=== PATIENT | male | born 1950 | race African-American/Black ===

== ENCOUNTER 2016-12-29 14:00 | Emergency (ER) | payer OTHER ==
--- NOTE | 2016-12-29 14:06 | PDOC ---
Attending Attestation - Resident Resident Name: Renaldo Hughes - ED Attending Attestation I have performed the following: I have examined & evaluated the patient, The case was reviewed & discussed with the resident, I agree w/resident's findings & plan, Exceptions are as noted - HPI HPI: 12/29/16 14:32 The patient is a 66 year old male who presents with a painless red eye that he noted upon awakening yesterday morning. He denies any changes in his vision. He denies eye trauma. He denies fever. He denies eye discharge. 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 I answered all of the patient's questions. The patient was satisfied with the care received and felt comfortable with the discharge plan and treatment plan. The patient will call their primary care physician within 24 hours to arrange follow-up and will return to the Emergency Department with any new, persistent or worsening symptoms. Discharge Disposition - Diagnosis Conjunctivitis - Discharge Dispostion Disposition: HOME Condition at time of disposition: Stable Last Admission D/C Date: 04/17/06 - Referrals Referrals: Karmen Toribio MD [Primary Care Provider] - - Patient Instructions Printed Discharge Instructions: DI for Conjunctivitis Additional Instructions: It is very important that you follow-up with your eye doctor next week. Use the medication erythromycin eye ointment as prescribed. Return to the emergency department immediately with ANY new, persistent or worsening symptoms. You MUST call and follow up with your doctor tomorrow. Please make sure your doctor reviews the results of your emergency department evaluation.
--- NOTE | 2016-12-29 14:15 | PDOC ---
History of Present Illness - General History Source: Patient Exam Limitations: No Limitations - History of Present Illness Initial Comments: 12/29/16 15:26 The patient is a 66 year old male, with a significant past medical history of left cataract surgery, who presents to the emergency department with a painless left red eye that he noticed yesterday morning upon awakening. The patient notes that he has baseline decreased vision in his left eye and baseline watery eyes. His left pupil is elliptical and non-reactive to light, which he identifies as a chronic condition. His friend who is present in the exam room confirms this. He notes that he does not have any pain with movement of the eyeball. He denies any trauma to the eye, visual changes, double vision. He denies any crusting to the eyes, blood coming from the eye, or any discharge. He notes that he has not tried any over the counter drops to alleviate the redness in his left eye. He denies chest pain, abdominal pain, headache, lightheadedness and dizziness. He denies cough, sinus pressure, fever, chills, and headache. He denies any sick contacts or recent travel Allergies: None Past surgical history:Left cataract surgery Social history: Current everyday smoker (20 cigarettes per day for 40+ years) and Heroin use PCP: Dr. Corinne Toribio <Vita Reid - Last Filed: 12/29/16 15:26> <Renaldo Hughes - Last Filed: 12/29/16 15:37> - General Chief Complaint: Eye Problem Stated Complaint: LEFT EYE REDNESS Time Seen by Provider: 12/29/16 14:06 Past History <Vita Reid - Last Filed: 12/29/16 15:26> <Renaldo Hughes - Last Filed: 12/29/16 15:37> - Past Medical History Allergies/Adverse Reactions: Allergies Allergy/AdvReac Type Severity Reaction Status Date / Time No Known Allergies Allergy Verified 12/29/16 14:06 Home Medications: Ambulatory Orders Coumadin HS 12/29/16 Erythromycin 0.5% Eye Ointment [Erythromycin 0.5% Eye Ointment -] 1 applic OS 5XD #1 tube 12/29/16 Lasix 12/29/16 Methadone [Dolophine -] 40 mg PO DAILY 12/29/16 Tamsulosin HCl [Flomax] 0.4 mg PO HS 12/29/16 Review of Systems - Review of Systems Able to Perform ROS?: Yes Comments:: 12/29/16 15:29 CONSTITUTIONAL: Absent: fever, no chills, no fatigue EYES: +left eye redness Absent: visual changes ENT: Absent: ear pain, no sore throat CARDIOVASCULAR: Absent: chest pain, no palpitations RESPIRATORY: Absent: cough, no SOB GI: Absent: abdominal pain, no nausea, no vomiting, no constipation, no diarrhea GENITOURINARY: Absent: dysuria, no frequency, no hematuria MUSCULOSKELETAL: Absent: back pain, no arthralgia, no myalgia SKIN: Absent: rash <Vita Reid - Last Filed: 12/29/16 15:26> *Physical Exam - Vital Signs Last Vital Signs Temp Pulse Resp BP Pulse Ox 98.0 F 90 20 128/90 95 12/29/16 14:03 12/29/16 14:03 12/29/16 14:03 12/29/16 14:03 12/29/16 14:03 - Physical Exam Comments: 12/29/16 15:29 GENERAL: Well-appearing, well-nourished. No apparent distress. HEENT: + Left pupil is elliptical and non-reactive to light (He identifies this as chronic and his friend who is present in the exam room confirms). +Left conjunctiva is injected and beefy. No increased lacrimation, no crusting. Right pupil is PERRL. Normocephalic CARDIOVASCULAR: +Irregularly irregular tachycardia PULMONARY: Clear to auscultation bilaterally. ABDOMEN: Soft, non-distended, non-tender. Normal bowel sounds. EXTREMITIES: + 2+ pitting edema on bilateral lower extremities Normal ROM in all four extremities. No gross deformities. SKIN: Warm, dry. No rash NEUROLOGICAL: No focal neurological deficits. <Vita Reid - Last Filed: 12/29/16 15:26> Medical Decision Making - Medical Decision Making 12/29/16 14:25 According to friend at bedside, pt's L iris has always been elliptical in shape. Pt to be discharged with erythromycin ointment to be used in eye. Pt also to f/ u with employee health rn and primary care provider. Pt most likely to have viral conjunctivitis causing redness in eye and protrusion of eye likely due to edema in eye. <Renaldo Hughes - Last Filed: 12/29/16 15:37> *DC/Admit/Observation/Transfer - Attestations Scribe Attestion: 12/29/16 15:30 Documentation prepared by LANDON Shaw, acting as forensic medical examiner for Ok Benavidez MD. <Vita Reid - Last Filed: 12/29/16 15:26> <Renaldo Hughes - Last Filed: 12/29/16 15:37> Diagnosis at time of Disposition: Conjunctivitis - Discharge Dispostion Disposition: HOME Condition at time of disposition: Stable - Prescriptions Prescriptions: Erythromycin 0.5% Eye Ointment [Erythromycin 0.5% Eye Ointment -] 1 applic OS 5XD #1 tube - Referrals Referrals: Karmen Toribio MD [Primary Care Provider] - - Patient Instructions Printed Discharge Instructions: DI for Conjunctivitis Additional Instructions: It is very important that you follow-up with your eye doctor next week. Use the medication erythromycin eye ointment as prescribed. Return to the emergency department immediately with ANY new, persistent or worsening symptoms. You MUST call and follow up with your doctor tomorrow. Please make sure your doctor reviews the results of your emergency department evaluation.
[2016-12-29 14:34] VITALS: BP 128/90; PULSE 90; TEMP 98; BMI 37.6
== END 2016-12-29 14:50 | disposition home or self-care (01) ==
LOC: FER 14:00
DX: H10.9 Unspecified conjunctivitis (principal); F17.210 Nicotine dependence, cigarettes, uncomplicated; F11.90 Opioid use, unspecified, uncomplicated; Z79.01 Long term (current) use of anticoagulants
CPT/HCPCS: 99281-25

== ENCOUNTER 2017-11-09 18:52 | Inpatient (IN) | payer OTHER ==
--- NOTE | 2017-11-09 19:08 | PDOC ---
History of Present Illness - General Chief Complaint: Shortness of Breath Stated Complaint: SOB - History of Present Illness Initial Comments: 11/10/17 12:23 Patient appears clinically stable. Labwork, EKG, and x-rays are ordered. Signed out to Dr. Joseph 7 PM for further examination and evaluation Past History - Past Medical History Allergies/Adverse Reactions: Allergies Allergy/AdvReac Type Severity Reaction Status Date / Time No Known Allergies Allergy Verified 11/09/17 18:53 Home Medications: Ambulatory Orders Methadone [Dolophine -] 60 mg PO DAILY 12/29/16 Tamsulosin HCl [Flomax] 0.4 mg PO HS 12/29/16 Furosemide [Lasix] 100 mg PO BID 11/09/17 Warfarin Sodium [Coumadin] mg PO DAILY 11/09/17 Cardiac Disorders: Yes (A-FIB) COPD: No Disorders: Yes (BPH) Liver Disease: Yes (HEPATITIS) Psychiatric Problems: Yes (HEROIN ADDICTION) - Surgical History Abdominal Surgery: Yes (HERNIA REPAIR) - Suicide/Smoking/Psychosocial Hx Smoking History: Current every day smoker Have you smoked in the past 12 months: Yes Number of Cigarettes Smoked Daily: 4 Information on smoking cessation initiated: Yes 'Breaking Loose' booklet given: 11/09/17 Hx Alcohol Use: No Drug/Substance Use Hx: Yes (HEROIN DAILY) Substance Use Type: Heroin *Physical Exam - Vital Signs Last Vital Signs Temp Pulse Resp BP Pulse Ox 98.2 F 97 H 24 138/96 90 L 11/09/17 18:52 11/09/17 18:52 11/09/17 18:52 11/09/17 18:52 11/09/17 18:52 ED Treatment Course - LABORATORY CBC & Chemistry Diagram: 11/09/17 22:20 11/09/17 22:20 *DC/Admit/Observation/Transfer Diagnosis at time of Disposition: COPD exacerbation - Discharge Dispostion Condition at time of disposition: Stable - Referrals - Patient Instructions - Post Discharge Activity
[2017-11-09] MEDS ORDERED: ALBUTEROL SO4 2.5/IPRATROPIUM 0.5 INH SOL 3 ML VIAL.NEB. NEB ONE ×5 (19:31→21:33)
--- NOTE | 2017-11-09 19:33 | PDOC ---
History of Present Illness - History of Present Illness Initial Comments: 11/09/17 19:33 The patient is a 66 year old male, with a significant past medical history of CHF (100mg BID Lasix) and left cataract surgery, who presents to the emergency department from a nearby Urgent Care for evaluations of two weeks with shortness of breath and increased lower extremity swelling. He states the dyspnea is worse with lying flat. He denies use of at home O2. The patient states he walks with 2 canes and becomes winded with only a few steps which is his baseline. He states he had a CXR at the urgent care which was negative, however, patient was advised to come to ED. He denies chest pain, palpitations, headache and dizziness. He denies fever, chills, nausea, vomit, diarrhea and constipation. He denies dysuria, frequency, urgency and hematuria. Allergies: None Past surgical history: Left cataract surgery Social history: Current everyday smoker (20 cigarettes per day for 40+ years) and Heroin use PCP: Dr. Corinne Watts ([place]) <Nguyen Fatima - Last Filed: 11/09/17 19:51> - General History Source: Patient Exam Limitations: No Limitations <Susu Prakash - Last Filed: 11/10/17 00:47> - General Chief Complaint: Shortness of Breath Stated Complaint: SOB Time Seen by Provider: 11/09/17 19:25 Past History <Nguyen Fatima - Last Filed: 11/09/17 19:51> - Past Medical History Cardiac Disorders: Yes (A-FIB) COPD: No Disorders: Yes (BPH) Liver Disease: Yes (HEPATITIS) Psychiatric Problems: Yes (HEROIN ADDICTION) - Surgical History Abdominal Surgery: Yes (HERNIA REPAIR) - Suicide/Smoking/Psychosocial Hx Smoking History: Current every day smoker Have you smoked in the past 12 months: Yes Number of Cigarettes Smoked Daily: 4 Information on smoking cessation initiated: Yes 'Breaking Loose' booklet given: 11/09/17 Hx Alcohol Use: No Drug/Substance Use Hx: Yes (HEROIN DAILY) Substance Use Type: Heroin <Susu Prakash - Last Filed: 11/10/17 00:47> - Past Medical History Allergies/Adverse Reactions: Allergies Allergy/AdvReac Type Severity Reaction Status Date / Time No Known Allergies Allergy Verified 11/09/17 18:53 Home Medications: Ambulatory Orders Methadone [Dolophine -] 60 mg PO DAILY 12/29/16 Tamsulosin HCl [Flomax] 0.4 mg PO HS 12/29/16 Furosemide [Lasix] 100 mg PO BID 11/09/17 Warfarin Sodium [Coumadin] mg PO DAILY 11/09/17 Review of Systems - Review of Systems Able to Perform ROS?: Yes Comments:: 11/09/17 19:33 GENERAL/CONSTITUTIONAL: No fever or chills. No weakness. HEAD, EYES, EARS, NOSE AND THROAT: No change in vision. No ear pain or discharge. No sore throat. CARDIOVASCULAR: No chest pain or shortness of breath. RESPIRATORY: (+) shortness of breath. orthopnea. No cough, wheezing, or hemoptysis. GASTROINTESTINAL: No nausea, vomiting, diarrhea or constipation. GENITOURINARY: No dysuria, frequency, or change in urination. MUSCULOSKELETAL: (+) bilateral lower extremity swelling. No joint or muscle pain. No neck or back pain. SKIN: No rash NEUROLOGIC: No headache, vertigo, loss of consciousness, or change in strength/ sensation. ENDOCRINE: No increased thirst. No abnormal weight change. HEMATOLOGIC/LYMPHATIC: No anemia, easy bleeding, or history of blood clots. ALLERGIC/IMMUNOLOGIC: No hives or skin allergy. <Nguyen Fatima - Last Filed: 11/09/17 19:51> *Physical Exam - Vital Signs Last Vital Signs Temp Pulse Resp BP Pulse Ox 98.2 F 97 H 24 138/96 90 L 11/09/17 18:52 11/09/17 18:52 11/09/17 18:52 11/09/17 18:52 11/09/17 18:52 - Physical Exam Comments: 11/09/17 19:33 GENERAL: Awake but drowsy, alert, and oriented, in no acute distress HEAD: No signs of trauma EYES: PERRLA, EOMI, sclera anicteric, conjunctiva clear ENT: Auricles normal inspection, hearing grossly normal, nares patent, oropharynx clear without exudates. Moist mucosa NECK: Normal ROM, supple, no lymphadenopathy, JVD, or masses LUNGS: (+)crackles and end expiratory wheezes at bilateral bases Breath sounds equal. Good effort. HEART: Regular rate and rhythm, normal S1 and S2, no murmurs, rubs or gallops ABDOMEN: Obese, Soft, nontender, normoactive bowel sounds. No guarding, no rebound. No masses EXTREMITIES: (+) Brawny Edema to bilateral lower extremities. Right inner calf there is a wound draining yellow serous fluid. No erythema or increased warmth. Normal range of motion, No clubbing or cyanosis. No cords, erythema, or tenderness NEUROLOGICAL: Cranial nerves II through XII grossly intact. Normal speech, SKIN: Warm, Dry, normal turgor, no rashes or lesions noted. <Ngueyn Fatima - Last Filed: 11/09/17 19:51> - Vital Signs Last Vital Signs Temp Pulse Resp BP Pulse Ox 98.2 F 97 H 24 138/96 90 L 11/09/17 18:52 11/09/17 18:52 11/09/17 18:52 11/09/17 18:52 11/09/17 18:52 <Susu Prakash - Last Filed: 11/10/17 00:47> Heart Score/ECG Review #1 General ECG Interpretation: Normal Rate (100 tachy), Normal Intervals, No acute ischemic changes Compared to previous ECG there are: Other (afib) <Susu Prakash - Last Filed: 11/10/17 00:47> ED Treatment Course - LABORATORY CBC & Chemistry Diagram: 11/09/17 22:20 11/09/17 22:20 <Susu Prakash - Last Filed: 11/10/17 00:47> Medical Decision Making - Medical Decision Making 11/09/17 19:29 67 yo M with h/o copd( PPD x 40 yrs) , CHF, here with sob, worse wtih xertion and lying flat, here from urgent care from hypoxia. no cp no f/c cough yellow phlegm on exam bibasilar crackles and expiratory wheezes. cxr veiwed from urgent care with chronic changes, no infiltrate, no obvious edema or congestion. differential: copd exacerbation liklye, mild chf. plan labs nebs, steroids, likley admit for copd exacerbation,. pcp dr. chen watts. <Susu Prakash - Last Filed: 11/10/17 00:47> *DC/Admit/Observation/Transfer - Attestations Scribe Attestion: 11/09/17 19:34 Documentation prepared by Nguyen Fatima, acting as medical insurance collector for Susu Prakash MD, <Nguyen Fatima - Last Filed: 11/09/17 19:51> - Discharge Dispostion Admit: Yes <Susu Prakash - Last Filed: 11/10/17 00:47> Diagnosis at time of Disposition: COPD exacerbation - Discharge Dispostion Condition at time of disposition: Stable
[2017-11-09] MEDS ORDERED: predniSONE 20 MG TABLET (UD) PO ONE (21:19)
[2017-11-09] MEDS ORDERED: predniSONE 20 MG TABLET (UD) ONE (21:34)
[2017-11-09] MEDS ORDERED: LIDOCAINE HCL 1%, 10 MG/ML (50 mL VIAL) SQ ONE (21:55)
[2017-11-09] MEDS ORDERED: LIDOCAINE HCL 1%, 10 MG/ML (20ML VIAL) ONE (21:56)
[2017-11-09 22:01] LABS: URINE APPEARANCE Clear; URINE BILIRUBIN Negative (NEGATIVE); URINE GLUCOSE (UA) Negative (NEGATIVE); URINE KETONE Negative (NEGATIVE); URINE LEUK ESTERASE Negative (NEGATIVE); URINE NITRITE Negative (NEGATIVE)
[2017-11-09 22:02] LABS: URINE BLOOD Trace-intact (NEGATIVE); URINE COLOR YELLOW; URINE PROTEIN 1+ (NEGATIVE)
[2017-11-09 22:09] LABS: URINE BACTERIA FEW /hpf (NEGATIVE); URINE WBC 0-2 (0-2)
[2017-11-09] MEDS ORDERED: FUROSEMIDE 40 MG TABLET (FP) PO ONE (22:30)
[2017-11-09 22:52] LABS: BASO % 1.1 % (0-2.0); EOS % 1.5 % (0-4.5); HEMATOCRIT 40.7 % (35.4-49); HEMOGLOBIN 13.3 GM/dl (11.7-16.9); LYMPH % 33.3 % (8-40); MCH 29.1 pg (25.7-33.7); MCHC 32.8 g/dl (32.0-35.9); MEAN CELL VOLUME 88.7 fl (80-96); MEAN PLT VOLUME 8.7 fl (7.5-11.1); MONO % 15.1 % (3.8-10.2); PLATELET COUNT 156 K/MM3 (134-434); RBC 4.59 M/mm3 (4.00-5.60); RDW 13.2 % (11.9-15.9); WHITE BLOOD COUNT 3.8 K/mm3 (4.0-10.8)
[2017-11-09] MEDS ORDERED: FUROSEMIDE 40 MG TABLET (FP) ONE (22:58)
[2017-11-09 23:04] LABS: INR 1.38 (0.82-1.09); PROTHROMBIN TIME (PATIENT) 15.4 SEC (10.2-13.0)
[2017-11-09 23:17] LABS: ALBUMIN 3.5 g/dl (3.5-5.0); ALK PHOS 85 U/L (32-92); ANION GAP 1 (8-16); BILIRUBIN,TOTAL 0.5 mg/dl (0.2-1.0); BLOOD UREA NITROGEN 14 mg/dl (7-18); CALCIUM 8.8 mg/dl (8.4-10.2); CHLORIDE 98 mmol/L (98-107); CO2 39 mmol/L (22-28); CREATININE 0.8 mg/dl (0.6-1.3); GLUCOSE,RANDOM 99 mg/dl (74-106); POTASSIUM 3.9 mmol/L (3.5-5.1); SGOT/AST 29 U/L (10-42); SGPT/ALT 17 U/L (10-40); SODIUM 138 mmol/L (136-145); TOT PROT 7.3 g/dl (6.4-8.3)
[2017-11-09 23:49] LABS: VENOUS PH 7.25 (7.32-7.42); VENOUS PO2 39.9 mmHg (28-48)
[2017-11-09 23:53] LABS: VENOUS PC02 85.4 mmHg (38-52)
[2017-11-10] MEDS ORDERED: methylPREDNISolone NA SUCC 40 MG/1 ML VIAL ONE (02:07)
[2017-11-10] MEDS: methylPREDNISolone NA SUCC 40 MG/1 ML VIAL IVPUSH SCH ×3 (02:11→18:09)
[2017-11-10 05:09] VITALS: BMI 39.1
[2017-11-10 05:52] LABS: ARTERIAL BLD GAS O2 SATURATION 99.4 % (90-98.9); ARTERIAL BLOOD GAS BASE EXCESS 6.5 meq/l (-2-2); ARTERIAL BLOOD GAS pH 7.26 (7.35-7.45)
[2017-11-10 05:54] LABS: ALLENS TEST POSITIVE
[2017-11-10 05:58] LABS: COCAINE, UR NEGATIVE ng/ml (CUTOFF=300); PHENCYCLIDINE,URINE NEGATIVE ng/ml (CUTOFF=25); URINE AMPHETAMINES NEGATIVE ng/ml (CUTOFF=500); URINE BARBITURATES NEGATIVE ng/ml (CUTOFF=200); URINE BENZODIAZEPINES NEGATIVE ng/ml (CUTOFF=200)
[2017-11-10] MEDS ORDERED: FUROSEMIDE 40 MG TABLET (FP) PO SCH (06:00)
[2017-11-10 06:02] LABS: ARTERIAL BLOOD GAS PCO2 86.2 mmHg (35-45)
[2017-11-10 06:03] LABS: METHADONE, UR POSITIVE ng/ml (CUTOFF=300); OPIATES, URI POSITIVE ng/ml (CUTOFF=300)
[2017-11-10] MEDS: ALBUTEROL SO4 2.5/IPRATROPIUM 0.5 INH SOL 3 ML VIAL.NEB. NEB SCH ×4 (08:05→20:05)
[2017-11-10] MEDS: TAMSULOSIN HCL 0.4 MG CAP.ER.24H (FP) PO SCH (08:30)
[2017-11-10] MEDS: ENOXAPARIN NA (PORCINE) 40 MG/0.4 ML DISP.SYRIN SQ SCH (10:20)
--- NOTE | 2017-11-10 13:26 | HP ---
Admitting History and Physical - Admission Chief Complaint: shortness of breath History of Present Illness: HPI This is a 67 year old male with pmhx A fib, 40 years drug abuse currently on methadone, active smoker, CHF, left cataract surgery, L hip surgery, presented to the ED with 3 days worsening shortness of breath. The patient states for the past 10 days hes thought to have walking pneumonia with sputum production after taking robatussin. When he would change position his chest would hurt and he would feel difficulty breathing. Per ED record pt was seen in urgent care for evaluation for sob and le swelling, cxr was negative however they told him to go to a ER. He ambulates 2 canes and was dyspneic on exertion. He denies chest pain, n/v, fever, chills. PCP: Dr. Corinne Toribio ([place]) History Source: Patient Limitations to Obtaining History: No Limitations - Past Medical History Cardiovascular: Yes: AFIB, CHF - Past Surgical History Past Surgical History: Yes: Cataract Removal - Smoking History Smoking history: Current every day smoker Have you smoked in the past 12 months: Yes Aproximately how many cigarettes per day: 4 - Alcohol/Substance Use Hx Alcohol Use: No History of Substance Use: reports: Heroin - Social History Usual Living Arrangement: Yes: Alone ADL: Independent History of Recent Travel: No Home Medications - Allergies Allergies/Adverse Reactions: Allergies Allergy/AdvReac Type Severity Reaction Status Date / Time No Known Allergies Allergy Verified 11/09/17 18:53 - Home Medications Home Medications: Ambulatory Orders Methadone [Dolophine -] 60 mg PO DAILY 12/29/16 Tamsulosin HCl [Flomax] 0.4 mg PO HS 12/29/16 Furosemide [Lasix] 100 mg PO BID 11/09/17 Warfarin Sodium [Coumadin] mg PO DAILY 11/09/17 Review of Systems - Review of Systems Constitutional: reports: No Symptoms Eyes: reports: No Symptoms HENT: reports: No Symptoms Neck: reports: No Symptoms Cardiovascular: reports: Shortness of Breath Respiratory: reports: SOB, SOB on Exertion Gastrointestinal: reports: No Symptoms Genitourinary: reports: No Symptoms Breasts: reports: No Symptoms Reported Musculoskeletal: reports: No Symptoms Integumentary: reports: No Symptoms Neurological: reports: No Symptoms Endocrine: reports: No Symptoms Hematology/Lymphatic: reports: No Symptoms Psychiatric: reports: No Symptoms Physical Examination Vital Signs: Vital Signs Temperature 98.6 F 11/10/17 06:39 Pulse Rate 105 H 11/10/17 11:18 Respiratory Rate 19 11/10/17 11:18 Blood Pressure 121/71 11/10/17 11:18 O2 Sat by Pulse Oximetry (%) 100 11/10/17 11:18 Constitutional: Yes: Calm Eyes: Yes: PERRL HENT: Yes: Atraumatic Neck: Yes: Supple Cardiovascular: Yes: Regular Rate and Rhythm, S1, S2 Respiratory: Yes: Diminished, On BiPap, Rhonchi Gastrointestinal: Yes: Normal Bowel Sounds, Soft, Abdomen, Obese Extremities: Yes: WNL Edema: Yes Edema: LLE: 2+ (thighs), RLE: 2+ (thighs ) Peripheral Pulses WNL: Yes Integumentary: Yes: Venous Stasis Changes Neurological: Yes: Alert, Oriented, Cran Nerves II-XII Intact Labs: CBC, BMP 11/09/17 22:20 11/09/17 22:20 Imaging - Results Chest X-ray: Report Reviewed (cxr from urgent care with chronic changes, no infiltrate, no obvious edema or congestion) Problem List - Problems (1) Methadone dependence Code(s): F11.20 - OPIOID DEPENDENCE, UNCOMPLICATED (2) CHF (congestive heart failure) Code(s): I50.9 - HEART FAILURE, UNSPECIFIED (3) COPD exacerbation Code(s): J44.1 - CHRONIC OBSTRUCTIVE PULMONARY DISEASE W (ACUTE) EXACERBATION Assessment/Plan Assessment: 67 year old male admitted with worsening shortness of breath and le edema Plan: 1. Acute hypercapnic respiratory failure - Has tolerated bipap for 2 hours thus far - ABG unsuccessful after 6 attempts - Will obtain stat VBG - Solumedrol 40mg q8hr - Transfer to [facility] when bed available - CXR in AM 2. A fib - Rate controlled - Coumadin 2mg /mo///sat, 1.5mg / - Telemetry monitoring 3. Acute CHF exacerbation - Change to lasix 80mg BID IVP - ECHO - CXR per urgent care shows chronic changes, no infiltrate, no obvious edema or congestion 3. Substance abuse - Confirm methadone dose tomorrow with [facility] - Will give x1 dose 60mg now Visit type - Emergency Visit Emergency Visit: Yes ED Registration Date: 11/10/17 Care time: The patient presented to the Emergency Department on the above date and was hospitalized for further evaluation of their emergent condition. - New Patient This patient is new to me today: Yes Date on this admission: 11/10/17 - Critical Care Critical Care patient: No Hospitalist Screening - Colonoscopy Questionnaire Colonoscopy Questionnaire: Colonoscopy Questionnaire - Patient: 50 - 75 years old and never had a screening colonoscopy: Unknown History of colon or rectal polyps, or CA: Unknown History of IBD, Crohn's disease or UC: Unknown History of abdominal radiation therapy as a child: Unknown - Relative: 1 with colon or rectal CA, or polyps at age 60 or younger: Unknown Colon or rectal CA diagnosed at age 45 or younger: Unknown Multiple relatives with colon or rectal CA: Unknown - Outcome: Screening Result: Negative Screen
[2017-11-10] MEDS ORDERED: METHADONE HCL 10 MG TABLET PO ONE (13:57)
[2017-11-10] MEDS: FUROSEMIDE 40 MG/4 ML INJECTABLE VIAL IVPUSH SCH (14:06)
--- NOTE | 2017-11-10 15:43 | CON.PULM ---
Consult Consult Specialty:: PULMONARY/CCM Referred by:: MAIKOL Dumont Reason for Consultation:: respiratory failure - History of Present Illness Chief Complaint: shortness of breath History of Present Illness: 67yo male with h/o atrial fibrillation, CHF, methadone maintenance, long time smoker who was sent from urgent care for hypoxia with worsening shortness of breath x 3 days. Reports a cough productive of white sputum and some wheezing. Denies any history of asthma or COPD. His PMD is at the NH. No fevers, chills or sweats. No palpitations. No sick contacts. CXR done at urgent care was reportedly without acute findings. ABG done showing acute on chronic respiratory acidosis, placed on BiPAP. - History Source History Provided By: Patient, Medical Record Limitations to Obtaining History: Clinical Condition - Past Medical History Cardio/Vascular: Yes: AFIB, CHF - Past Surgical History Past Surgical History: Yes: Cataract Removal - Alcohol/Substance Use Hx Alcohol Use: No History of Substance Use: reports: Heroin - Smoking History Smoking history: Current every day smoker Have you smoked in the past 12 months: Yes Aproximately how many cigarettes per day: 4 - Social History ADL: Independent History of Recent Travel: No Home Medications - Allergies Allergies/Adverse Reactions: Allergies Allergy/AdvReac Type Severity Reaction Status Date / Time No Known Allergies Allergy Verified 11/09/17 18:53 - Home Medications Home Medications: Ambulatory Orders Methadone [Dolophine -] 60 mg PO DAILY 12/29/16 Tamsulosin HCl [Flomax] 0.4 mg PO HS 12/29/16 Furosemide [Lasix] 100 mg PO BID 11/09/17 Warfarin Sodium [Coumadin] mg PO DAILY 11/09/17 Review of Systems - Review of Systems Constitutional: denies: Chills, Fever Eyes: denies: Recent Change in Vision Neck: denies: Stiffness, Tenderness Cardiovascular: reports: Chest Pain, Shortness of Breath. denies: Edema, Palpitations Respiratory: reports: Cough, SOB, Wheezing. denies: Hemoptysis Gastrointestinal: denies: Abdominal Pain, Nausea, Vomiting Genitourinary: denies: Dysuria, Hematuria Neurological: denies: Dizziness, Headache Physical Exam Vital Sings: Vital Signs Temperature 98.6 F 11/10/17 06:39 Pulse Rate 81 11/10/17 14:43 Respiratory Rate 19 04/01/18 14:43 Blood Pressure 139/97 04/01/18 14:43 O2 Sat by Pulse Oximetry (%) 100 11/10/17 14:43 Constitutional: Yes: Other (somnolent but arousable) Eyes: Yes: Conjunctiva Clear, EOM Intact HENT: Yes: Atraumatic, Normocephalic Neck: Yes: Supple, Trachea Midline Cardiovascular: Yes: Regular Rate and Rhythm Respiratory: Yes: Diminished (distant breath sounds). No: Wheezes ...Clubbing: No Gastrointestinal: Yes: Normal Bowel Sounds, Soft. No: Tenderness Edema: No Neurological: Yes: Lethargy Labs: CBC, BMP 11/09/17 22:20 11/09/17 22:20 ABG Results ABG pH 7.26 (7.35-7.45) L 11/10/17 05:05 ABG pCO2 at Pt Temp 86.2 mmHg (35-45) H* 11/10/17 05:05 ABG pO2 at Pt Temp 174.0 mmHg (80-100) H* 11/10/17 05:05 ABG HCO3 36.9 meq/L (22-26) H 11/10/17 05:05 ABG O2 Sat (Measured) 99.4 % (90-98.9) H 11/10/17 05:05 ABG O2 Content 19.5 % vol (15-22) 11/10/17 05:05 ABG Base Excess 6.5 meq/l (-2-2) H 11/10/17 05:05 Problem List - Problems (1) COPD exacerbation Code(s): J44.1 - CHRONIC OBSTRUCTIVE PULMONARY DISEASE W (ACUTE) EXACERBATION (2) Acute on chronic respiratory failure with hypoxia and hypercapnia Code(s): J96.21 - ACUTE AND CHRONIC RESPIRATORY FAILURE WITH HYPOXIA; J96.22 - ACUTE AND CHRONIC RESPIRATORY FAILURE WITH HYPERCAPNIA (3) CHF (congestive heart failure) Code(s): I50.9 - HEART FAILURE, UNSPECIFIED (4) Methadone dependence Code(s): F11.20 - OPIOID DEPENDENCE, UNCOMPLICATED (5) Atrial fibrillation Code(s): I48.91 - UNSPECIFIED ATRIAL FIBRILLATION Assessment/Plan Acute on Likely Chronic Hypoxic and Hypercapneic Respiratory Failure Acute COPD Exacerbation Atrial Fibrillation CHF Methadone Maintenance Smoker - IV medrol - inhaled bronchodilators standing and PRN - O2 to keep Spo2 88-92% to prevent worsening V/Q mismatch - BiPAP to assist in work of breathing and to increase minute ventilation - lasix - monitor urine output, creatinine - echocardiogram - rate control - continue anticoagulation - consider holding or decreasing methadone dose until acute hypercapnea resolves - would transfer to monitored setting Thank you for this consult Suleiman Oswald MD
[2017-11-10] MEDS ORDERED: WARFARIN NA 2 MG TABLET (UD) PO SCH (18:00)
[2017-11-11] MEDS: methylPREDNISolone NA SUCC 40 MG/1 ML VIAL IVPUSH SCH ×3 (01:55→17:26)
[2017-11-11] MEDS: FUROSEMIDE 40 MG/4 ML INJECTABLE VIAL IVPUSH SCH ×2 (06:51→16:00)
[2017-11-11 08:22] LABS: ALBUMIN 3.5 g/dl (3.5-5.0); ALK PHOS 78 U/L (32-92); ANION GAP 8 (8-16); BILIRUBIN,TOTAL 1.2 mg/dl (0.2-1.0); BLOOD UREA NITROGEN 22 mg/dl (7-18); CHLORIDE 92 mmol/L (98-107); CO2 37 mmol/L (22-28); CREATININE 0.8 mg/dl (0.6-1.3); GLUCOSE,RANDOM 126 mg/dl (74-106); MAGNESIUM 1.8 mg/dL (1.8-2.4); POTASSIUM 5.1 mmol/L (3.5-5.1); SGOT/AST 30 U/L (10-42); SGPT/ALT 13 U/L (10-40); SODIUM 137 mmol/L (136-145); TOT PROT 7.3 g/dl (6.4-8.3)
[2017-11-11] MEDS: ALBUTEROL SO4 2.5/IPRATROPIUM 0.5 INH SOL 3 ML VIAL.NEB. NEB SCH ×4 (08:35→21:30)
[2017-11-11] MEDS: ENOXAPARIN NA (PORCINE) 40 MG/0.4 ML DISP.SYRIN SQ SCH (09:28)
[2017-11-11] MEDS: TAMSULOSIN HCL 0.4 MG CAP.ER.24H (FP) PO SCH (09:28)
--- NOTE | 2017-11-11 11:13 | PN ---
Physical Exam: SUBJECTIVE: Patient seen and examined. He is feeling better today, his thighs are less fluid filled. He had never seen his legs swollen like that before. OBJECTIVE: Vital Signs Period Temp Pulse Resp BP Sys/Vyas Pulse Ox Last 24 Hr 98.5 F-98.7 F 81-105 18-20 111-139/68-97 92-100 PE Neuro: alert, awake, cn 2-12intact Pulm: diminished, rhonchi +NC + congestion CV: s1 s2 irregular rate rhythm Abd: s nt nd + bs Ext: b/l lower ex venous stasis changes, R upper thigh drying left +1 edema Laboratory Results - last 24 hr 11/11/17 11/11/17 07:15 07:45 WBC Cancelled Corrected WBC (auto) Cancelled RBC Cancelled Hgb Cancelled Hct Cancelled MCV Cancelled MCH Cancelled MCHC Cancelled RDW Cancelled Plt Count Cancelled MPV Cancelled Neutrophils % Cancelled Lymphocytes % Cancelled Monocytes % Cancelled Eosinophils % Cancelled Basophils % Cancelled Nucleated RBC % Cancelled Platelet Estimate Cancelled Platelet Comment Cancelled Sodium 137 Potassium 5.1 D Chloride 92 L Carbon Dioxide 37 H Anion Gap 8 BUN 22 H D Creatinine 0.8 Creat Clearance w eGFR > 60 Random Glucose 126 H D Calcium 9.0 Magnesium 1.8 Total Bilirubin 1.2 H D AST 30 ALT 13 D Alkaline Phosphatase 78 Total Protein 7.3 Albumin 3.5 Active Medications Generic Name Dose Route Start Last Admin Trade Name Michaelq PRN Reason Stop Dose Admin Albuterol/Ipratropium 1 amp 11/10/17 08:00 11/11/17 08:35 Duoneb - NEB 1 amp RQID PATO Administration Enoxaparin Sodium 40 mg 11/10/17 10:00 11/11/17 09:28 Lovenox - SQ 40 mg DAILY PATO Administration Furosemide 80 mg 11/10/17 14:00 11/11/17 06:51 Lasix Injection - IVPUSH 80 mg BID@0600,1400 [facility] Administration Methadone HCl 60 mg 11/11/17 22:00 Dolophine - PO HS PATO Methylprednisolone Sodium Succinate 40 mg 11/10/17 03:00 11/11/17 09:28 Solu-Medrol - IVPUSH 40 mg Q8H-IV PATO Administration Tamsulosin HCl 0.4 mg 11/10/17 08:30 11/11/17 09:28 Flomax - PO 0.4 mg DAILY@0830 [facility] Administration Warfarin Sodium 2 mg 11/10/17 18:00 Coumadin - PO SUMOWEFRSA@1800 [facility] Warfarin Sodium 1.5 mg 11/12/17 18:00 Coumadin - PO TUTH@1800 [facility] Assessment: 67 year old male admitted with worsening shortness of breath and le edema Plan: 1. Acute on chronic hypoxic/ hypercapnic respiratory failure - Tolerating NC satturating low 90's - Continue Bipap - Solumedrol 40mg q8hr - Follow up AM CXR - Unable to draw blood gas this AM 2. A fib - Rate uncontrolled - Start toprol xl 25mg daily, monitor response - INR sub therapeutic - Give coumadin 7.5mg tonight - Bridge with Lovenox 120mg BID - Normal schedule Coumadin 2mg Woodard////sat, 1.5mg / 3. Acute on chronic diastolic CHF - D/w PMD Karmen Toribio 2014 ECHO shows EF 65%, mod pulm HTN, diastolic HF - ECHO ordered today - Continue Lasix 80mg BID IVP 4. Substance abuse - Confirmed 60mg methadone, prefers to take at night - Will give 40mg due to resp status, change to 60mg when stable, will remain as pending on OCT, call pharmacy when ready for 60mg - Per PMD pt has had relapses in the past Dispo: - Transfer to Monitored floor - When discharge fax DC summary Dr. Karmen Toribio at [facility] (fax) [phone] (office #) Problem List - Problems (1) Methadone dependence Code(s): F11.20 - OPIOID DEPENDENCE, UNCOMPLICATED (2) CHF (congestive heart failure) Code(s): I50.9 - HEART FAILURE, UNSPECIFIED (3) COPD exacerbation Code(s): J44.1 - CHRONIC OBSTRUCTIVE PULMONARY DISEASE W (ACUTE) EXACERBATION Visit type - Emergency Visit Emergency Visit: Yes ED Registration Date: 11/10/17 Care time: The patient presented to the Emergency Department on the above date and was hospitalized for further evaluation of their emergent condition. - New Patient This patient is new to me today: No - Critical Care Critical Care patient: No
--- NOTE | 2017-11-11 11:24 | EKG ---
Test Reason : Blood Pressure : / mmHG Vent. Rate : 100 BPM Atrial Rate : 120 BPM P-R Int : 000 ms QRS Dur : 068 ms QT Int : 356 ms P-R-T Axes : 000 060 027 degrees QTc Int : 459 ms ATRIAL FIBRILLATION NONSPECIFIC T WAVE ABNORMALITY ABNORMAL ECG WHEN COMPARED WITH ECG OF 27-NOV-2007 22:03, ATRIAL FIBRILLATION HAS REPLACED SINUS RHYTHM VENT. RATE HAS INCREASED BY 36 BPM T WAVE INVERSION NO LONGER EVIDENT IN INFERIOR LEADS NONSPECIFIC T WAVE ABNORMALITY HAS REPLACED INVERTED T WAVES IN LATERAL LEADS Confirmed by SALINAS BOO, PARVEZ ([id number]) on 11/11/2017 11:23:49 AM Referred By: OXANA VELOZ Confirmed By:PARVEZ NIÑO MD
[2017-11-11] MEDS ORDERED: LORATADINE 10 MG TABLET PO ONE (11:35)
[2017-11-11] MEDS: metoPROLOL SUCCINATE 25 MG TAB.SR.24H (FP) PO SCH (12:36)
--- NOTE | 2017-11-11 13:56 | PN ---
Progress Note (short form) - Note Progress Note: PULMONARY MUCH IMPROVED VSS/IRREGULAR 88 ANICTERIC NO JVD BIBASILAR INSPIRATORY CRACKLES S1S2 IRREG BS+ OBESE LESS ENKLE EDEMA LABS/MEDS/NOTES/IMAGES REVIEWED Acute on Likely Chronic Hypoxic and Hypercapneic Respiratory Failure Acute COPD Exacerbation Atrial Fibrillation CHF Methadone Maintenance Smoker - IV medrol to taper - inhaled bronchodilators standing and PRN - O2 to keep Spo2 88-92% to prevent worsening V/Q mismatch - BiPAP to assist in work of breathing and to increase minute ventilation - diuretics - monitor urine output, creatinine - echocardiogram pending - rate control - continue anticoagulation - consider holding or decreasing methadone dose until acute hypercapnea resolves - continue monitored setting - needs outpatient PFT's/PSG Johanna AQUINO MD
[2017-11-11 16:57] LABS: INR 1.41 (0.82-1.09); PROTHROMBIN TIME (PATIENT) 15.7 SEC (10.2-13.0)
[2017-11-11] MEDS ORDERED: WARFARIN NA 7.5 MG TABLET (FP) PO ONE (18:00)
[2017-11-11] MEDS: ENOXAPARIN NA (PORCINE) 120 MG/0.8 ML DISP.SYRIN SQ SCH ×2 (20:33→22:33)
[2017-11-11] MEDS ORDERED: METHADONE HCL 10 MG TABLET PO SCH ×2 (22:00)
[2017-11-11] MEDS: METHADONE HCL 10 MG TABLET PO SCH (22:33)
[2017-11-12] MEDS: methylPREDNISolone NA SUCC 40 MG/1 ML VIAL IVPUSH SCH ×3 (01:28→17:34)
[2017-11-12] MEDS: FUROSEMIDE 40 MG/4 ML INJECTABLE VIAL IVPUSH SCH ×2 (05:47→13:08)
[2017-11-12 07:59] LABS: ANION GAP 6 (8-16); BLOOD UREA NITROGEN 33 mg/dL (7-18); CALCIUM 9.1 mg/dL (8.5-10.1); CHLORIDE 93 mmol/L (98-107); CO2 38 mmol/L (21-32); GLUCOSE,RANDOM 122 mg/dL (74-106); POTASSIUM 4.1 mmol/L (3.5-5.1); SODIUM 137 mmol/L (136-145)
[2017-11-12 08:04] LABS: INR 1.31 (0.82-1.09); PROTHROMBIN TIME (PATIENT) 14.8 SEC (9.98-11.88)
[2017-11-12] MEDS: TAMSULOSIN HCL 0.4 MG CAP.ER.24H (FP) PO SCH (08:06)
[2017-11-12] MEDS: ALBUTEROL SO4 2.5/IPRATROPIUM 0.5 INH SOL 3 ML VIAL.NEB. NEB SCH ×4 (08:20→21:10)
[2017-11-12 09:31] LABS: BASO % 0.2 % (0-2.0); HEMATOCRIT 45.7 % (35.4-49); HEMOGLOBIN 14.7 GM/dL (11.7-16.9); MCH 28.3 pg (25.7-33.7); MCHC 32.1 g/dl (32.0-35.9); MEAN CELL VOLUME 88.4 fl (80-96); MEAN PLT VOLUME 9.6 fl (7.5-11.1); MONO % 6.6 % (3.8-10.2); NEUT % 82.2 % (42.8-82.8); PLATELET COUNT 158 K/MM3 (134-434); RBC 5.18 M/mm3 (4.00-5.60); RDW 13.7 % (11.9-15.9); WHITE BLOOD COUNT 7.2 K/mm3 (4.0-10.0)
[2017-11-12] MEDS: metoPROLOL SUCCINATE 25 MG TAB.SR.24H (FP) PO SCH (10:08)
[2017-11-12] MEDS: ENOXAPARIN NA (PORCINE) 120 MG/0.8 ML DISP.SYRIN SQ SCH ×2 (11:38→21:57)
[2017-11-12 12:21] LABS: ARTERIAL BLOOD GAS pH 7.43 (7.35-7.45)
[2017-11-12 12:22] LABS: ALLENS TEST POSITIVE; ARTERIAL BLD GAS O2 SATURATION 93.1 % (90-98.9); ARTERIAL BLOOD GAS BASE EXCESS 12.6 meq/l (-2-2); ARTERIAL BLOOD GAS PCO2 61.3 mmHg (35-45); ARTERIAL BLOOD GAS PO2 70.5 mmHg (80-100)
--- NOTE | 2017-11-12 12:36 | PN ---
Progress Note (short form) - Note Progress Note: PULMONARY Much more alert, awake. States breathing is improved. Does not remember me from 2 days ago. Last Vital Signs Temp Pulse Resp BP Pulse Ox 98.1 F 93 H 20 107/79 93 L 11/12/17 06:00 11/12/17 06:00 11/12/17 06:00 11/12/17 06:00 11/11/17 21:00 Intake & Output 11/09/17 11/10/17 11/11/17 11/12/17 23:59 23:59 23:59 23:59 Intake Total 450 300 Output Total 125 3170 4000 1200 Balance -125 -3170 -3550 -900 Weight 127.913 kg 137.458 kg 126.643 kg 125.01 kg Gen: more alert, awake Heart: RRR Lung: distant breath sounds, no wheezes Abd: soft, nontender Ext: no edema, chronic changes CBC, BMP 11/12/17 08:00 11/12/17 07:00 Active Medications Albuterol/Ipratropium (Duoneb -) 1 amp NEB RQID [facility] Last Admin: 11/12/17 08:20 Dose: 1 amp Enoxaparin Sodium (Lovenox -) 120 mg SQ BID [facility] Last Admin: 11/12/17 11:38 Dose: 120 mg Furosemide (Lasix Injection -) 80 mg IVPUSH BID@0600,1400 [facility] Last Admin: 11/12/17 05:47 Dose: 80 mg Methadone HCl (Dolophine -) 40 mg PO HS [facility] Last Admin: 11/11/17 22:33 Dose: 40 mg Methadone HCl (Dolophine -) 60 mg PO [facility] Methylprednisolone Sodium Succinate (Solu-Medrol -) 40 mg IVPUSH Q8H-IV [facility] Last Admin: 11/12/17 10:07 Dose: 40 mg Metoprolol Succinate (Toprol Xl -) 25 mg PO DAILY [facility] Last Admin: 11/12/17 10:08 Dose: 25 mg Tamsulosin HCl (Flomax -) 0.4 mg PO DAILY@0830 [facility] Last Admin: 11/12/17 08:06 Dose: 0.4 mg Warfarin Sodium (Coumadin -) 2 mg PO SUMOWEFRSA@1800 [facility] Last Admin: 11/11/17 20:31 Dose: Not Given Warfarin Sodium (Coumadin -) 1.5 mg PO TUTH@1800 [facility] A/P Acute on Likely Chronic Hypoxic and Hypercapneic Respiratory Failure Acute COPD Exacerbation Atrial Fibrillation CHF Methadone Maintenance Smoker - continue medrol - can likely change steroids to PO in AM if continues to improve - inhaled bronchodilators standing and PRN - O2 to keep Spo2 88-92% to prevent worsening V/Q mismatch - BiPAP to assist in work of breathing and to increase minute ventilation - lasix, can decrease dose - monitor urine output, creatinine - rate control - continue anticoagulation - consider holding or decreasing methadone dose until acute hypercapnea resolves - will need outpt PFTs, PSG - when ready for discharge, will need to check ambulatory SpO2 to assess for home O2 Problem List - Problems (1) COPD exacerbation Code(s): J44.1 - CHRONIC OBSTRUCTIVE PULMONARY DISEASE W (ACUTE) EXACERBATION (2) Acute on chronic respiratory failure with hypoxia and hypercapnia Code(s): J96.21 - ACUTE AND CHRONIC RESPIRATORY FAILURE WITH HYPOXIA; J96.22 - ACUTE AND CHRONIC RESPIRATORY FAILURE WITH HYPERCAPNIA (3) CHF (congestive heart failure) Code(s): I50.9 - HEART FAILURE, UNSPECIFIED (4) Methadone dependence Code(s): F11.20 - OPIOID DEPENDENCE, UNCOMPLICATED (5) Atrial fibrillation Code(s): I48.91 - UNSPECIFIED ATRIAL FIBRILLATION
--- NOTE | 2017-11-12 12:39 | PN ---
Physical Exam: SUBJECTIVE: Patient seen and examined at the bedside. Awake and alert in not acute distress. Feels better, tolerating nasal cannula No chest pain, not shortness of breath. OBJECTIVE: ABG repeated and noted Discussed with pulmonary Vital Signs Period Temp Pulse Resp BP Sys/Vyas Pulse Ox Last 24 Hr 98.1 F-99.8 F 93-118 20-22 105-115/63-89 91-93 GENERAL: The patient is awake, alert, and fully oriented, in no acute distress. HEAD: Normal with no signs of trauma. EYES: PERRL, extraocular movements intact, sclera anicteric, conjunctiva clear. No ptosis. ENT: Ears normal, nares patent, oropharynx clear without exudates, moist mucous membranes. NECK: Trachea midline, full range of motion, supple. LUNGS: diminished breath sounds bilaterally, no wheezing, no dyspnea, on 2-3 liters of nasal cannula ABDOMEN: Soft, nontender, nondistended, normoactive bowel sounds, no guarding, no rebound, no hepatosplenomegaly, no masses. EXTREMITIES: Non pitting edema bilaterally NEUROLOGICAL: Normal speech, gait not observed. PSYCH: Normal mood, normal affect. SKIN: Warm, dry, normal turgor, no rashes or lesions noted Laboratory Results - last 24 hr 11/11/17 11/12/17 11/12/17 11:14 07:00 07:00 WBC RBC Hgb Hct MCV MCH MCHC RDW Plt Count MPV Neutrophils % Lymphocytes % Monocytes % Eosinophils % Basophils % PT with INR 15.7 H 14.80 H INR 1.41 H 1.31 H Anticoagulation Therapy Puncture Site ABG pH ABG pCO2 at Pt Temp ABG pO2 at Pt Temp ABG HCO3 ABG O2 Sat (Measured) ABG O2 Content ABG Base Excess Jonah Test O2 Delivery Device Oxygen Flow Rate Vent Mode Vent Rate Mechanical Rate Pressure Support Vent Sodium 137 Potassium 4.1 Chloride 93 L Carbon Dioxide 38 H Anion Gap 6 L BUN 33 H D Creatinine 1.0 D Random Glucose 122 H D Calcium 9.1 11/12/17 11/12/17 08:00 12:15 WBC 7.2 D RBC 5.18 Hgb 14.7 D Hct 45.7 MCV 88.4 MCH 28.3 MCHC 32.1 RDW 13.7 Plt Count 158 MPV 9.6 Neutrophils % 82.2 D Lymphocytes % 11.0 D Monocytes % 6.6 Eosinophils % 0.0 D Basophils % 0.2 PT with INR INR Anticoagulation Therapy No Result Required. Puncture Site Right radial ABG pH 7.43 D ABG pCO2 at Pt Temp 61.3 H* D ABG pO2 at Pt Temp 70.5 L D ABG HCO3 39.7 H ABG O2 Sat (Measured) 93.1 ABG O2 Content 18.3 ABG Base Excess 12.6 H Jonah Test Positive O2 Delivery Device No Result Required. Oxygen Flow Rate No Result Required. Vent Mode No Result Required. Vent Rate No Result Required. Mechanical Rate No Result Required. Pressure Support Vent No Result Required. Sodium Potassium Chloride Carbon Dioxide Anion Gap BUN Creatinine Random Glucose Calcium Active Medications Generic Name Dose Route Start Last Admin Trade Name Freq PRN Reason Stop Dose Admin Albuterol/Ipratropium 1 amp 11/10/17 08:00 11/12/17 08:20 Duoneb - NEB 1 amp RQID PATO Administration Enoxaparin Sodium 120 mg 11/11/17 11:15 11/12/17 11:38 Lovenox - SQ 120 mg BID PATO Administration Furosemide 80 mg 11/10/17 14:00 11/12/17 05:47 Lasix Injection - IVPUSH 80 mg BID@0600,1400 [facility] Administration Methadone HCl 40 mg 11/11/17 22:00 11/11/17 22:33 Dolophine - PO 40 mg HS PATO Administration Methadone HCl 60 mg 11/11/17 22:00 Dolophine - PO HS [facility]O Methylprednisolone Sodium Succinate 40 mg 11/10/17 03:00 11/12/17 10:07 Solu-Medrol - IVPUSH 40 mg Q8H-IV PATO Administration Metoprolol Succinate 25 mg 11/11/17 11:30 11/12/17 10:08 Toprol Xl - PO 25 mg DAILY PATO Administration Tamsulosin HCl 0.4 mg 11/10/17 08:30 11/12/17 08:06 Flomax - PO 0.4 mg DAILY@0830 [facility] Administration Warfarin Sodium 2 mg 11/10/17 18:00 11/11/17 20:31 Coumadin - PO Not Given SUMOWEFRSA@1800 [facility] Warfarin Sodium 1.5 mg 11/12/17 18:00 Coumadin - PO TUTH@1800 [facility] ASSESSMENT/PLAN: Patient is a 66 year old male with a significant past medical history of CHF, left cataract surgery, daily smoker (1 pack daily x 40 yrs) and polysubstance abuse. He presented to the ED for shortness of breath x 2 weeks with increased bilateral lower extremity edema. Patient reports that prior to admission, he noted that he became short of breath with minimally physical activity. He was seen at the urgent care prior to his ED visit and was encouraged to report to the ER for worsening shortness of breath. Patient endorses improvement of orthopnea which he originally experienced prior to admission. He is not home oxygen dependent. Imaging: Chest xry: no acute process seen Echo:EF 65-70%, mild mitral regurg, mildly dilated, mild tricuspid regurg, inf vena cava mod dilated, mild aortic sclerosis Pulmonary: COPD Exacerbation, acute on chronic Chronic Hypoxic and Hypercapneic respiratory failure Bipap, but now tolerating nasal cannula On SoluMedrol 40mg IV push Maintain continuous pulse ox monitoring to maintain oxygen sats between 88-92% Pre and post ordered for a.m. Pulmonary following Cardiology: Atrial Fibrillation, chronic On Toprol 25mg daily On Coumadin at home, INR subtherapeutic on admission On Lovenox bridging to Coumadin Reported to be on a Coumadin regimen (Coumadin with alternating doses-currently on hold on EMR) Since subtherapeutic, will give Coumadin 7.5mg tonight with repeat INR in a.m. Once INR therapeutic, can go back to his home dosing INR goal bet. 2-3 CHF Acute on chronic diastolic CHF On Lasix 80mg IV BID Dry weight reported to be apx 122kg, currently 125kg Monitor intake and output, weight daily Psyche: Polysubstance abuse On Methadone 40mg (usually on 60mg dosing but decreased secondary to respiratory status) Smoker, active On Nicotine patch Encourage smoking cessation F.E.N. Fluids: PO adequate Electrolytes: monitor daily Nutrition: low salt Prophy: DVT: lovenox with coumadin bridging GI: deferred Disposition: Discharge summary to be faxed to patient's primary care physician: Chloé Toribio at [facility] [phone] (fax) [phone] (office) as per previous provider note. Visit type - Emergency Visit Emergency Visit: Yes ED Registration Date: 11/10/17 Care time: The patient presented to the Emergency Department on the above date and was hospitalized for further evaluation of their emergent condition. - New Patient This patient is new to me today: Yes Date on this admission: 11/12/17 - Critical Care Critical Care patient: No - Discharge Referral Referred to [facility] No
[2017-11-12] MEDS: NICOTINE 21 MG/24 HOURS TOPICAL PATCH TD SCH (17:40)
[2017-11-12] MEDS ORDERED: WARFARIN NA 7.5 MG TABLET (FP) PO ONE (18:00)
[2017-11-12] MEDS ORDERED: WARFARIN NA 7.5 MG TABLET (FP) PO SCH (18:00)
[2017-11-12] MEDS ORDERED: WARFARIN NA 3 MG TABLET PO SCH (18:00)
[2017-11-12] MEDS ORDERED: PT OWN MED DRAWER 7, Y5N ONE (21:53)
[2017-11-12] MEDS: METHADONE HCL 10 MG TABLET PO SCH (21:58)
[2017-11-13] MEDS: methylPREDNISolone NA SUCC 40 MG/1 ML VIAL IVPUSH SCH ×2 (01:05→09:41)
[2017-11-13] MEDS: FUROSEMIDE 40 MG/4 ML INJECTABLE VIAL IVPUSH SCH ×2 (06:30→13:22)
[2017-11-13] MEDS: ALBUTEROL SO4 2.5/IPRATROPIUM 0.5 INH SOL 3 ML VIAL.NEB. NEB SCH ×4 (07:45→20:25)
[2017-11-13] MEDS: metoPROLOL SUCCINATE 25 MG TAB.SR.24H (FP) PO SCH ×3 (08:50→21:54)
[2017-11-13] MEDS: TAMSULOSIN HCL 0.4 MG CAP.ER.24H (FP) PO SCH (08:51)
[2017-11-13] MEDS ORDERED: PT OWN MED DRAWER 7, Y5N ONE (08:57)
[2017-11-13] MEDS: ENOXAPARIN NA (PORCINE) 120 MG/0.8 ML DISP.SYRIN SQ SCH ×2 (09:41→21:53)
[2017-11-13] MEDS: NICOTINE 21 MG/24 HOURS TOPICAL PATCH TD SCH (09:41)
[2017-11-13 09:49] LABS: BASO % 0.1 % (0-2.0); HEMATOCRIT 45.5 % (35.4-49); HEMOGLOBIN 14.9 GM/dL (11.7-16.9); LYMPH % 9.1 % (8-40); MCH 28.6 pg (25.7-33.7); MCHC 32.7 g/dl (32.0-35.9); MEAN CELL VOLUME 87.4 fl (80-96); MEAN PLT VOLUME 9.1 fl (7.5-11.1); MONO % 10.4 % (3.8-10.2); NEUT % 80.4 % (42.8-82.8); PLATELET COUNT 171 K/MM3 (134-434); RDW 14.1 % (11.9-15.9); WHITE BLOOD COUNT 6.6 K/mm3 (4.0-10.0)
[2017-11-13 10:15] LABS: INR 1.41 (0.82-1.09); PROTHROMBIN TIME (PATIENT) 15.9 SEC (9.98-11.88)
[2017-11-13 10:17] LABS: ALBUMIN 3.8 g/dl (3.4-5.0); ALK PHOS 102 U/L (45-117); ANION GAP 12 (8-16); BILIRUBIN,TOTAL 1.1 mg/dL (0.2-1.0); BLOOD UREA NITROGEN 31 mg/dL (7-18); CALCIUM 9.5 mg/dL (8.5-10.1); CHLORIDE 87 mmol/L (98-107); CO2 36 mmol/L (21-32); CREATININE 1.1 mg/dL (0.7-1.3); GLUCOSE,RANDOM 228 mg/dL (74-106); POTASSIUM 3.3 mmol/L (3.5-5.1); SGOT/AST 25 U/L (15-37); SGPT/ALT 18 U/L (12-78); SODIUM 135 mmol/L (136-145); TOT PROT 8.3 g/dl (6.4-8.2)
[2017-11-13] MEDS ORDERED: METOPROLOL TARTRATE 5 MG/5 ML VIAL IVPUSH ONE ×2 (12:45→17:32)
[2017-11-13] MEDS ORDERED: METOPROLOL TARTRATE 5 MG/5 ML VIAL ONE (12:46)
--- NOTE | 2017-11-13 14:37 | PN ---
Progress Note, Physician History of Present Illness: PULMONARY ALERT,FEELING BETTER,DYSPNEA IMPROVING - Current Medication List Current Medications: Active Medications Albuterol/Ipratropium (Duoneb -) 1 amp NEB RQID [facility] Last Admin: 11/13/17 11:35 Dose: 1 amp Enoxaparin Sodium (Lovenox -) 120 mg SQ BID [facility] Last Admin: 11/13/17 09:41 Dose: 120 mg Furosemide (Lasix Injection -) 80 mg IVPUSH BID@0600,1400 [facility] Last Admin: 11/13/17 13:22 Dose: 80 mg Methadone HCl (Dolophine -) 40 mg PO HS [facility] Last Admin: 11/12/17 21:58 Dose: 40 mg Methylprednisolone Sodium Succinate (Solu-Medrol -) 40 mg IVPUSH Q8H-IV [facility] Last Admin: 11/13/17 09:41 Dose: 40 mg Metoprolol Succinate (Toprol Xl -) 25 mg PO BID [facility] Nicotine (Nicoderm Patch -) 21 mg TD DAILY [facility] Last Admin: 11/13/17 09:41 Dose: 21 mg Tamsulosin HCl (Flomax -) 0.4 mg PO DAILY@0830 [facility] Last Admin: 11/13/17 08:51 Dose: 0.4 mg Warfarin Sodium (Coumadin -) 2 mg PO SUMOWEFRSA@1800 [facility] Last Admin: 11/11/17 20:31 Dose: Not Given Warfarin Sodium (Coumadin -) 1.5 mg PO TUTH@1800 [facility] - Objective Vital Signs: Vital Signs Temperature 98.2 F 11/13/17 06:25 Pulse Rate 132 H 11/13/17 14:33 Respiratory Rate 20 11/13/17 10:00 Blood Pressure 129/82 11/13/17 12:57 O2 Sat by Pulse Oximetry (%) 93 L 11/13/17 10:30 Constitutional: Yes: Well Nourished, Calm Eyes: Yes: WNL HENT: Yes: WNL Neck: Yes: WNL Cardiovascular: Yes: Pulse Irregular, S1, S2 Respiratory: Yes: Diminished Gastrointestinal: Yes: Normal Bowel Sounds, Soft Extremities: Yes: WNL Edema: Yes Labs: CBC, BMP 11/13/17 09:25 11/13/17 09:25 INR, PTT INR 1.41 (0.82-1.09) H 04/04/18 09:25 Assessment/Plan A/P Acute on Likely Chronic Hypoxic and Hypercapneic Respiratory Failure Acute COPD Exacerbation Atrial Fibrillation CHF Methadone Maintenance Smoker - prednisone - inhaled bronchodilators standing and PRN - O2 to keep Spo2 88-92% to prevent worsening V/Q mismatch - BiPAP to assist in work of breathing and to increase minute ventilation - lasix - monitor urine output, creatinine - rate control - continue anticoagulation - will need outpt PFTs, PSG - when ready for discharge, will need to check ambulatory SpO2 to assess for home O2 Problem List - Problems (1) COPD exacerbation Code(s): J44.1 - CHRONIC OBSTRUCTIVE PULMONARY DISEASE W (ACUTE) EXACERBATION (2) Acute on chronic respiratory failure with hypoxia and hypercapnia Code(s): J96.21 - ACUTE AND CHRONIC RESPIRATORY FAILURE WITH HYPOXIA; J96.22 - ACUTE AND CHRONIC RESPIRATORY FAILURE WITH HYPERCAPNIA (3) CHF (congestive heart failure) Code(s): I50.9 - HEART FAILURE, UNSPECIFIED (4) Methadone dependence Code(s): F11.20 - OPIOID DEPENDENCE, UNCOMPLICATED (5) Atrial fibrillation Code(s): I48.91 - UNSPECIFIED ATRIAL FIBRILLATION
--- NOTE | 2017-11-13 15:07 | CON.CARD ---
Consult Consult Specialty:: Cardiology Referred by:: Julia Reason for Consultation:: af chf - History of Present Illness Chief Complaint: sob History of Present Illness: This is a 67 year old male with chronic atrial fibrillation on coumadin followed at the [facility], drug abuse on methadone, smoker, chronic diastolic CHF , left cataract surgery, L hip surgery, presented to the ED with 3 days worsening shortness of breath. CXR negative but worsening edema. No chest pain , orthopnea or PND. Echo 11/13/17 EF 65%, mild MR/TR - History Source History Provided By: Patient, Medical Record Limitations to Obtaining History: No Limitations - Past Medical History Cardio/Vascular: Yes: AFIB, CHF - Past Surgical History Past Surgical History: Yes: Cataract Removal - Alcohol/Substance Use Hx Alcohol Use: No History of Substance Use: reports: Heroin - Smoking History Smoking history: Current every day smoker Have you smoked in the past 12 months: Yes Aproximately how many cigarettes per day: 4 - Social History ADL: Independent History of Recent Travel: No Home Medications - Allergies Allergies/Adverse Reactions: Allergies Allergy/AdvReac Type Severity Reaction Status Date / Time No Known Allergies Allergy Verified 11/09/17 18:53 - Home Medications Home Medications: Ambulatory Orders Methadone [Dolophine -] 60 mg PO DAILY 12/29/16 Tamsulosin HCl [Flomax] 0.4 mg PO HS 12/29/16 Furosemide [Lasix] 100 mg PO BID 11/09/17 Warfarin Sodium [Coumadin] mg PO DAILY 11/09/17 Review of Systems - Review of Systems Constitutional: reports: No Symptoms Eyes: reports: No Symptoms HENT: reports: No Symptoms Neck: reports: No Symptoms Gastrointestinal: reports: No Symptoms Genitourinary: reports: No Symptoms Vital Signs: Vital Signs Temperature 98.2 F 11/13/17 06:25 Pulse Rate 122 H 11/13/17 14:35 Respiratory Rate 20 11/13/17 10:00 Blood Pressure 129/82 11/13/17 12:57 O2 Sat by Pulse Oximetry (%) 93 L 11/13/17 10:30 Constitutional: Yes: No Distress, Calm Eyes: Yes: Conjunctiva Clear, EOM Intact HENT: Yes: Atraumatic, Normocephalic Neck: Yes: Supple, Trachea Midline Respiratory: Yes: Regular, CTA Bilaterally Gastrointestinal: Yes: Normal Bowel Sounds, Soft Renal/: Yes: WNL Cardiovascular: Yes: Pulse Irregular JVD: No Carotid Bruit: No PMI: Non-Displaced Heart Sounds: Yes: S1, S2 Musculoskeletal: Yes: WNL Edema: Yes Edema: LLE: 2+, RLE: 2+ Peripheral Pulses WNL: Yes - Other Data Labs, Other Data: CBC, BMP 11/13/17 09:25 11/13/17 09:25 INR, PTT INR 1.41 (0.82-1.09) H 11/13/17 09:25 Imaging - Results Chest X-ray: Report Reviewed (jayjay) EKG: Report Reviewed (afib nssttw changes.) Problem List - Problems (1) Atrial fibrillation Assessment/Plan: Continue coumadin. Rates are controlled. continue metoprolol, telemetry. Code(s): I48.91 - UNSPECIFIED ATRIAL FIBRILLATION Qualifiers: Atrial fibrillation type: chronic Qualified Code(s): I48.2 - Chronic atrial fibrillation (2) CHF (congestive heart failure) Assessment/Plan: Elevated BNP, would diurese with lasix, fluid restrict, follow daily weights. Continue IV lasix for now. Code(s): I50.9 - HEART FAILURE, UNSPECIFIED Qualifiers: Heart failure type: diastolic Heart failure chronicity: acute on chronic Qualified Code(s): I50.33 - Acute on chronic diastolic (congestive) heart failure
[2017-11-13] MEDS ORDERED: POTASSIUM CHLORIDE TABS 20 MEQ TABLET.ER (FP) PO ONE (17:32)
--- NOTE | 2017-11-13 18:38 | PN ---
Progress Note (short form) - Note Progress Note: SUBJECTIVE: Patient seen and examined at the bedside, he states he would like to go home. Current Medications Generic Name Dose Route Start Last Admin Trade Name Jennifer PRN Reason Stop Dose Admin Albuterol/Ipratropium 1 amp 11/10/17 08:00 11/14/17 16:10 Duoneb - NEB 1 amp RQID [facility] Administration Enoxaparin Sodium 120 mg 11/11/17 11:15 11/14/17 10:18 Lovenox - SQ 120 mg BID [facility] Administration Furosemide 80 mg 11/10/17 14:00 11/14/17 14:30 Lasix Injection - IVPUSH 80 mg BID@0600,1400 [facility] Administration Methadone HCl 60 mg 11/14/17 18:07 Dolophine - PO HS [facility] Metoprolol Succinate 25 mg 11/13/17 22:00 11/14/17 10:18 Toprol Xl - PO 25 mg BID [facility] Administration Nicotine 21 mg 11/12/17 17:30 11/14/17 10:17 Nicoderm Patch - TD 21 mg DAILY [facility] Administration Prednisone 60 mg 11/14/17 10:00 11/14/17 10:17 Deltasone - PO 60 mg DAILY [facility] Administration Tamsulosin HCl 0.4 mg 11/10/17 08:30 11/14/17 10:18 Flomax - PO 0.4 mg DAILY@0830 [facility] Administration Warfarin Sodium 2 mg 11/10/17 18:00 11/11/17 20:31 Coumadin - PO Not Given SUMOWEFRSA@1800 [facility] Warfarin Sodium 1.5 mg 11/12/17 18:00 Coumadin - PO TUTH@1800 [facility] OBJECTIVE: Neuro: alert, awake, cn 2-12intact Pulm: Diminished breath sounds bilaterally CV: s1 s2 irregular rate rhythm Abd: s nt nd + bs Ext: b/l lower ex venous stasis changes, R upper thigh drying left +1 edema CBCD WBC 6.6 K/mm3 (4.0-10.0) 11/13/17 09:25 RBC 5.20 M/mm3 (4.00-5.60) 11/13/17 09:25 Hgb 14.9 GM/dL (11.7-16.9) 11/13/17 09:25 Hct 45.5 % (35.4-49) 11/13/17 09:25 MCV 87.4 fl (80-96) 11/13/17 09:25 MCHC 32.7 g/dl (32.0-35.9) 11/13/17 09:25 RDW 14.1 % (11.9-15.9) 11/13/17 09:25 Plt Count 171 K/MM3 (134-434) 11/13/17 09:25 MPV 9.1 fl (7.5-11.1) 11/13/17 09:25 CARDIAC ENZYMES Creatine Kinase 76 IU/L (39-308) 11/09/17 22:20 Troponin I < 0.03 ng/ml (0.00-0.06) 11/09/17 22:20 Microbiology 11/09/17 22:20 Blood - Peripheral Venous Blood Culture - Preliminary NO GROWTH OBTAINED AFTER 96 HOURS, INCUBATION TO CONTINUE FOR 1 DAYS. 11/09/17 22:20 Blood - Peripheral Venous Blood Culture - Preliminary NO GROWTH OBTAINED AFTER 96 HOURS, INCUBATION TO CONTINUE FOR 1 DAYS. Assessment: 67 year old male admitted with worsening shortness of breath and le edema Plan: 1. Acute on chronic hypoxic/ hypercapnic respiratory failure - Tolerating NC saturating low 90's - Continue Bipap - Solumedrol taper - Qualifies for home o2 2. A fib - Rate uncontrolled - Increased toprol xl to 25mg po bid - INR sub therapeutic, continue Coumadin 7.5mg po hs - Bridge with Lovenox 120mg BID - Appreciate cardiology consult 3. Acute on chronic diastolic CHF - ECHO reviewed - Continue Lasix 80mg BID IVP - Daily weights, strict I&O 4. Substance abuse - Increased to 60mg po hs Dispo: - Can discharge once INR therapeutic - When discharge fax DC summary Dr. Karmen Toribio at [facility] (fax) [phone] (office #) Visit type - Emergency Visit Emergency Visit: Yes ED Registration Date: 11/10/17 Care time: The patient presented to the Emergency Department on the above date and was hospitalized for further evaluation of their emergent condition. - New Patient This patient is new to me today: Yes Date on this admission: 11/14/17 - Critical Care Critical Care patient: No
[2017-11-13] MEDS ORDERED: WARFARIN NA 7.5 MG TABLET (FP) PO ONE (20:30)
[2017-11-13] MEDS: METHADONE HCL 10 MG TABLET PO SCH (21:54)
[2017-11-13] MEDS ORDERED: methylPREDNISolone NA SUCC 40 MG/1 ML VIAL IVPUSH SCH (22:00)
[2017-11-14] MEDS: FUROSEMIDE 40 MG/4 ML INJECTABLE VIAL IVPUSH SCH ×2 (06:49→14:30)
[2017-11-14] MEDS: ALBUTEROL SO4 2.5/IPRATROPIUM 0.5 INH SOL 3 ML VIAL.NEB. NEB SCH ×4 (07:37→20:55)
[2017-11-14 08:12] LABS: INR 1.68 (0.82-1.09)
[2017-11-14 09:18] LABS: ANION GAP 21 (8-16); BLOOD UREA NITROGEN 38 mg/dL (7-18); CALCIUM 8.5 mg/dL (8.5-10.1); CHLORIDE 93 mmol/L (98-107); CO2 25 mmol/L (21-32); CREATININE 1.2 mg/dL (0.7-1.3); GLUCOSE,RANDOM 97 mg/dL (74-106); POTASSIUM 4.6 mmol/L (3.5-5.1); SODIUM 139 mmol/L (136-145)
[2017-11-14] MEDS ORDERED: PT OWN MED DRAWER 7, Y5N ONE ×3 (10:10→22:40)
[2017-11-14] MEDS: NICOTINE 21 MG/24 HOURS TOPICAL PATCH TD SCH (10:17)
[2017-11-14] MEDS: predniSONE 20 MG TABLET (UD) PO SCH (10:17)
[2017-11-14] MEDS: TAMSULOSIN HCL 0.4 MG CAP.ER.24H (FP) PO SCH (10:18)
[2017-11-14] MEDS: metoPROLOL SUCCINATE 25 MG TAB.SR.24H (FP) PO SCH ×2 (10:18→22:42)
[2017-11-14] MEDS: ENOXAPARIN NA (PORCINE) 120 MG/0.8 ML DISP.SYRIN SQ SCH ×2 (10:18→22:42)
--- NOTE | 2017-11-14 13:31 | PN ---
Progress Note (short form) - Note Progress Note: PULMONARY Breathing improving today. Less cough. Last Vital Signs Temp Pulse Resp BP Pulse Ox 97.9 F 96 H 20 110/52 95 11/14/17 10:00 11/14/17 10:00 11/14/17 10:00 11/14/17 10:00 11/14/17 09:00 Gen: more alert, awake Heart: RRR Lung: distant breath sounds, no wheezes Abd: soft, nontender Ext: no edema, chronic changes CBC, BMP 11/13/17 09:25 11/14/17 06:30 Active Medications Albuterol/Ipratropium (Duoneb -) 1 amp NEB RQID [facility] Last Admin: 11/14/17 11:10 Dose: Not Given Enoxaparin Sodium (Lovenox -) 120 mg SQ BID [facility] Last Admin: 11/14/17 10:18 Dose: 120 mg Furosemide (Lasix Injection -) 80 mg IVPUSH BID@0600,1400 [facility] Last Admin: 11/14/17 06:49 Dose: 80 mg Methadone HCl (Dolophine -) 40 mg PO HS [facility] Last Admin: 11/13/17 21:54 Dose: 40 mg Metoprolol Succinate (Toprol Xl -) 25 mg PO BID [facility] Last Admin: 11/14/17 10:18 Dose: 25 mg Nicotine (Nicoderm Patch -) 21 mg TD DAILY [facility] Last Admin: 11/14/17 10:17 Dose: 21 mg Prednisone (Deltasone -) 60 mg PO DAILY [facility] Last Admin: 11/14/17 10:17 Dose: 60 mg Tamsulosin HCl (Flomax -) 0.4 mg PO DAILY@0830 [facility] Last Admin: 11/14/17 10:18 Dose: 0.4 mg Warfarin Sodium (Coumadin -) 2 mg PO SUMOWEFRSA@1800 [facility] Last Admin: 11/11/17 20:31 Dose: Not Given Warfarin Sodium (Coumadin -) 1.5 mg PO TUTH@1800 [facility] A/P Acute on Likely Chronic Hypoxic and Hypercapneic Respiratory Failure Acute COPD Exacerbation Atrial Fibrillation CHF Methadone Maintenance Smoker - prednisone taper - inhaled bronchodilators standing and PRN - lasix, can decrease dose - monitor urine output, creatinine - rate control - continue anticoagulation - will need outpt PFTs, PSG - when ready for discharge, will need to check ambulatory SpO2 to assess for home O2 Problem List - Problems (1) COPD exacerbation Code(s): J44.1 - CHRONIC OBSTRUCTIVE PULMONARY DISEASE W (ACUTE) EXACERBATION (2) Acute on chronic respiratory failure with hypoxia and hypercapnia Code(s): J96.21 - ACUTE AND CHRONIC RESPIRATORY FAILURE WITH HYPOXIA; J96.22 - ACUTE AND CHRONIC RESPIRATORY FAILURE WITH HYPERCAPNIA (3) CHF (congestive heart failure) Code(s): I50.9 - HEART FAILURE, UNSPECIFIED Qualifiers: Heart failure type: diastolic Heart failure chronicity: acute on chronic Qualified Code(s): I50.33 - Acute on chronic diastolic (congestive) heart failure (4) Methadone dependence Code(s): F11.20 - OPIOID DEPENDENCE, UNCOMPLICATED (5) Atrial fibrillation Code(s): I48.91 - UNSPECIFIED ATRIAL FIBRILLATION Qualifiers: Atrial fibrillation type: chronic Qualified Code(s): I48.2 - Chronic atrial fibrillation
--- NOTE | 2017-11-14 13:52 | PN ---
Progress Note, Physician Chief Complaint: less sob lying flat tele af controlled vr History of Present Illness: This is a 67 year old male with chronic atrial fibrillation on coumadin followed at the [facility], drug abuse on methadone, smoker, chronic diastolic CHF , left cataract surgery, L hip surgery, presented to the ED with 3 days worsening shortness of breath. CXR negative but worsening edema. No chest pain , orthopnea or PND. Echo 11/13/17 EF 65%, mild MR/TR - Current Medication List Current Medications: Active Medications Albuterol/Ipratropium (Duoneb -) 1 amp NEB RQID [facility] Last Admin: 11/14/17 11:10 Dose: Not Given Enoxaparin Sodium (Lovenox -) 120 mg SQ BID [facility] Last Admin: 11/14/17 10:18 Dose: 120 mg Furosemide (Lasix Injection -) 80 mg IVPUSH BID@0600,1400 [facility] Last Admin: 11/14/17 06:49 Dose: 80 mg Methadone HCl (Dolophine -) 40 mg PO HS [facility] Last Admin: 11/13/17 21:54 Dose: 40 mg Metoprolol Succinate (Toprol Xl -) 25 mg PO BID [facility] Last Admin: 11/14/17 10:18 Dose: 25 mg Nicotine (Nicoderm Patch -) 21 mg TD DAILY [facility] Last Admin: 11/14/17 10:17 Dose: 21 mg Prednisone (Deltasone -) 60 mg PO DAILY [facility] Last Admin: 11/14/17 10:17 Dose: 60 mg Tamsulosin HCl (Flomax -) 0.4 mg PO DAILY@0830 [facility] Last Admin: 11/14/17 10:18 Dose: 0.4 mg Warfarin Sodium (Coumadin -) 2 mg PO SUMOWEFRSA@1800 [facility] Last Admin: 11/11/17 20:31 Dose: Not Given Warfarin Sodium (Coumadin -) 1.5 mg PO TUTH@1800 [facility] - Objective Vital Signs: Vital Signs Temperature 97.9 F 11/14/17 10:00 Pulse Rate 96 H 11/14/17 10:00 Respiratory Rate 20 11/14/17 10:00 Blood Pressure 110/52 11/14/17 10:00 O2 Sat by Pulse Oximetry (%) 95 11/14/17 09:00 Constitutional: Yes: No Distress, Calm HENT: Yes: Normocephalic Neck: Yes: Trachea Midline Cardiovascular: Yes: Pulse Irregular, S1, S2 Respiratory: Yes: Rales (bilat bases) Gastrointestinal: Yes: Normal Bowel Sounds, Soft Extremities: Yes: WNL Edema: No Labs: CBC, BMP 11/13/17 09:25 11/14/17 06:30 INR, PTT INR 1.68 (0.82-1.09) H 11/14/17 06:30 Problem List - Problems (1) Atrial fibrillation Assessment/Plan: Continue coumadin. Rates are controlled. continue metoprolol, telemetry. Code(s): I48.91 - UNSPECIFIED ATRIAL FIBRILLATION Qualifiers: Atrial fibrillation type: chronic Qualified Code(s): I48.2 - Chronic atrial fibrillation (2) CHF (congestive heart failure) Assessment/Plan: Elevated BNP, would diurese with lasix, fluid restrict, follow daily weights. Continue IV lasix for now. Code(s): I50.9 - HEART FAILURE, UNSPECIFIED Qualifiers: Heart failure type: diastolic Heart failure chronicity: acute on chronic Qualified Code(s): I50.33 - Acute on chronic diastolic (congestive) heart failure
[2017-11-14] MEDS ORDERED: WARFARIN NA 7.5 MG TABLET (FP) PO ONE (18:00)
--- NOTE | 2017-11-14 18:03 | PN ---
Progress Note (short form) - Note Progress Note: SUBJECTIVE: Patient seen and examined at the bedside, he has no complaints at this time Current Medications Generic Name Dose Route Start Last Admin Trade Name Jennifer PRN Reason Stop Dose Admin Albuterol/Ipratropium 1 amp 11/10/17 08:00 11/14/17 16:10 Duoneb - NEB 1 amp RQID [facility] Administration Enoxaparin Sodium 120 mg 11/11/17 11:15 11/14/17 10:18 Lovenox - SQ 120 mg BID [facility] Administration Furosemide 80 mg 11/10/17 14:00 11/14/17 14:30 Lasix Injection - IVPUSH 80 mg BID@0600,1400 [facility] Administration Methadone HCl 60 mg 11/14/17 18:07 Dolophine - PO [facility] Metoprolol Succinate 25 mg 11/13/17 22:00 11/14/17 10:18 Toprol Xl - PO 25 mg BID [facility] Administration Nicotine 21 mg 11/12/17 17:30 11/14/17 10:17 Nicoderm Patch - TD 21 mg DAILY [facility] Administration Prednisone 60 mg 11/14/17 10:00 11/14/17 10:17 Deltasone - PO 60 mg DAILY [facility] Administration Tamsulosin HCl 0.4 mg 11/10/17 08:30 11/14/17 10:18 Flomax - PO 0.4 mg DAILY@0830 [facility] Administration Warfarin Sodium 2 mg 11/10/17 18:00 11/11/17 20:31 Coumadin - PO Not Given SUMOWEFRSA@1800 [facility] Warfarin Sodium 1.5 mg 11/12/17 18:00 11/14/17 18:08 Coumadin - PO 1.5 mg TUTH@1800 [facility] Administration OBJECTIVE: Vital Signs Period Temp Pulse Resp BP Sys/Vyas Pulse Ox Last 24 Hr 97.8 F-98.4 F 88-115 18-20 102-120/50-66 95-97 Neuro: alert, awake, cn 2-12intact Pulm: Diminished breath sounds bilaterally CV: s1 s2 irregular rate rhythm Abd: s nt nd + bs Ext: b/l lower ex venous stasis changes, left +1 edema CBCD WBC 6.6 K/mm3 (4.0-10.0) 11/13/17 09:25 RBC 5.20 M/mm3 (4.00-5.60) 11/13/17 09:25 Hgb 14.9 GM/dL (11.7-16.9) 11/13/17 09:25 Hct 45.5 % (35.4-49) 11/13/17 09:25 MCV 87.4 fl (80-96) 11/13/17 09:25 MCHC 32.7 g/dl (32.0-35.9) 11/13/17 09:25 RDW 14.1 % (11.9-15.9) 11/13/17 09:25 Plt Count 171 K/MM3 (134-434) 11/13/17 09:25 MPV 9.1 fl (7.5-11.1) 11/13/17 09:25 CMP Sodium 139 mmol/L (136-145) 11/14/17 06:30 Potassium 4.6 mmol/L (3.5-5.1) D 11/14/17 06:30 Chloride 93 mmol/L (98-107) L 11/14/17 06:30 Carbon Dioxide 25 mmol/L (21-32) D 11/14/17 06:30 Anion Gap 21 (8-16) H 11/14/17 06:30 BUN 38 mg/dL (7-18) H D 11/14/17 06:30 Creatinine 1.2 mg/dL (0.7-1.3) 11/14/17 06:30 Creat Clearance w eGFR > 60 (>60) 11/13/17 09:25 Random Glucose 97 mg/dL (74-106) D 11/14/17 06:30 Calcium 8.5 mg/dL (8.5-10.1) 11/14/17 06:30 Total Bilirubin 1.1 mg/dL (0.2-1.0) H D 11/13/17 09:25 AST 25 U/L (15-37) 11/13/17 09:25 ALT 18 U/L (12-78) 11/13/17 09:25 Alkaline Phosphatase 102 U/L (45-117) 11/13/17 09:25 Total Protein 8.3 g/dl (6.4-8.2) H 11/13/17 09:25 Albumin 3.8 g/dl (3.4-5.0) 11/13/17 09:25 CARDIAC ENZYMES Creatine Kinase 76 IU/L (39-308) 11/09/17 22:20 Troponin I < 0.03 ng/ml (0.00-0.06) 11/09/17 22:20 Microbiology 11/09/17 22:20 Blood - Peripheral Venous Blood Culture - Preliminary NO GROWTH OBTAINED AFTER 96 HOURS, INCUBATION TO CONTINUE FOR 1 DAYS. 11/09/17 22:20 Blood - Peripheral Venous Blood Culture - Preliminary NO GROWTH OBTAINED AFTER 96 HOURS, INCUBATION TO CONTINUE FOR 1 DAYS. Assessment: 67 year old male admitted with worsening shortness of breath and le edema Plan: 1. Acute on chronic hypoxic/ hypercapnic respiratory failure - Tolerating NC saturating low 90's - Continue Bipap - Solumedrol taper - Qualifies for home o2 2. A fib - Rate uncontrolled - Increased toprol xl to 25mg po bid - INR sub therapeutic, continue Coumadin 7.5mg po hs - Bridge with Lovenox 120mg BID - Appreciate cardiology consult 3. Acute on chronic diastolic CHF - ECHO reviewed - Continue Lasix 80mg BID IVP - Daily weights, strict I&O 4. Substance abuse - Increased Methadone to 60mg po hs Dispo: - Can discharge once INR therapeutic - When discharge fax DC summary Dr. Karmen Toribio at [facility] (fax) [phone] (office #) Visit type - Emergency Visit Emergency Visit: Yes ED Registration Date: 11/10/17 Care time: The patient presented to the Emergency Department on the above date and was hospitalized for further evaluation of their emergent condition. - New Patient This patient is new to me today: No - Critical Care Critical Care patient: No
[2017-11-14] MEDS: METHADONE HCL 10 MG TABLET PO SCH ×2 (22:42→22:43)
[2017-11-15] MEDS: MELATONIN 5 MG TABLETS PO PRN ×2 (00:05→23:01)
[2017-11-15] MEDS: FUROSEMIDE 40 MG/4 ML INJECTABLE VIAL IVPUSH SCH ×2 (06:04→13:42)
[2017-11-15 08:02] LABS: INR 1.84 (0.82-1.09); PROTHROMBIN TIME (PATIENT) 20.8 SEC (9.98-11.88)
[2017-11-15 08:05] LABS: CHLORIDE 90 mmol/L (98-107); POTASSIUM 3.3 mmol/L (3.5-5.1); SODIUM 135 mmol/L (136-145)
[2017-11-15 08:12] LABS: ANION GAP 8 (8-16); BLOOD UREA NITROGEN 36 mg/dL (7-18); CALCIUM 8.7 mg/dL (8.5-10.1); CO2 37 mmol/L (21-32); GLUCOSE,RANDOM 82 mg/dL (74-106)
[2017-11-15] MEDS: TAMSULOSIN HCL 0.4 MG CAP.ER.24H (FP) PO SCH (09:58)
[2017-11-15] MEDS: predniSONE 20 MG TABLET (UD) PO SCH (09:58)
[2017-11-15] MEDS: NICOTINE 21 MG/24 HOURS TOPICAL PATCH TD SCH (09:58)
[2017-11-15] MEDS: metoPROLOL SUCCINATE 25 MG TAB.SR.24H (FP) PO SCH ×2 (09:58→21:27)
[2017-11-15] MEDS: ENOXAPARIN NA (PORCINE) 120 MG/0.8 ML DISP.SYRIN SQ SCH ×2 (09:58→21:28)
--- NOTE | 2017-11-15 12:11 | PN ---
Progress Note, Physician History of Present Illness: pulmonary alert,feeling better,-cp,-sob - Current Medication List Current Medications: Active Medications Enoxaparin Sodium (Lovenox -) 120 mg SQ BID [facility] Last Admin: 11/15/17 09:58 Dose: 120 mg Furosemide (Lasix Injection -) 80 mg IVPUSH BID@0600,1400 [facility] Last Admin: 11/15/17 06:04 Dose: 80 mg Melatonin (Melatonin) 5 mg PO HS PRN PRN Reason: INSOMNIA Last Admin: 11/15/17 00:05 Dose: 5 mg Methadone HCl (Dolophine -) 60 mg PO HS [facility] Last Admin: 11/14/17 22:43 Dose: 60 mg Metoprolol Succinate (Toprol Xl -) 25 mg PO BID [facility] Last Admin: 11/15/17 09:58 Dose: 25 mg Nicotine (Nicoderm Patch -) 21 mg TD DAILY [facility] Last Admin: 11/15/17 09:58 Dose: 21 mg Prednisone (Deltasone -) 60 mg PO DAILY [facility] Last Admin: 11/15/17 09:58 Dose: 60 mg Tamsulosin HCl (Flomax -) 0.4 mg PO DAILY@0830 [facility] Last Admin: 11/15/17 09:58 Dose: 0.4 mg Warfarin Sodium (Coumadin -) 7.5 mg PO DAILY@1800 [facility] - Objective Vital Signs: Vital Signs Temperature 98.2 F 11/15/17 09:00 Pulse Rate 98 H 11/15/17 09:00 Respiratory Rate 18 11/15/17 09:00 Blood Pressure 106/64 11/15/17 09:00 O2 Sat by Pulse Oximetry (%) 96 11/15/17 09:00 Constitutional: Yes: Well Nourished, Calm Eyes: Yes: WNL HENT: Yes: WNL Neck: Yes: WNL Cardiovascular: Yes: Pulse Irregular, S1, S2 Respiratory: Yes: CTA Bilaterally Gastrointestinal: Yes: Normal Bowel Sounds, Soft Extremities: Yes: WNL Edema: Yes Labs: CBC, BMP 11/13/17 09:25 11/15/17 06:30 INR, PTT INR 1.84 (0.82-1.09) H 11/15/17 06:30 Assessment/Plan A/P Acute on Likely Chronic Hypoxic and Hypercapneic Respiratory Failure Acute COPD Exacerbation Atrial Fibrillation CHF Methadone Maintenance Smoker - prednisone - inhaled bronchodilators standing and PRN - O2 to keep Spo2 88-92% to prevent worsening V/Q mismatch - BiPAP to assist in work of breathing and to increase minute ventilation - lasix as per cardiology - monitor urine output, creatinine - rate control - continue anticoagulation - will need outpt PFTs, PSG - when ready for discharge, will need to check ambulatory SpO2 to assess for home O2 Problem List - Problems (1) COPD exacerbation Code(s): J44.1 - CHRONIC OBSTRUCTIVE PULMONARY DISEASE W (ACUTE) EXACERBATION (2) Acute on chronic respiratory failure with hypoxia and hypercapnia Code(s): J96.21 - ACUTE AND CHRONIC RESPIRATORY FAILURE WITH HYPOXIA; J96.22 - ACUTE AND CHRONIC RESPIRATORY FAILURE WITH HYPERCAPNIA (3) CHF (congestive heart failure) Code(s): I50.9 - HEART FAILURE, UNSPECIFIED (4) Methadone dependence Code(s): F11.20 - OPIOID DEPENDENCE, UNCOMPLICATED (5) Atrial fibrillation Code(s): I48.91 - UNSPECIFIED ATRIAL FIBRILLATION
--- NOTE | 2017-11-15 13:06 | PN ---
Progress Note (short form) - Note Progress Note: SUBJECTIVE: Patient seen and examined at the bedside, he has no complaints at this time Current Medications Generic Name Dose Route Start Last Admin Trade Name Jennifer PRN Reason Stop Dose Admin Enoxaparin Sodium 120 mg 11/11/17 11:15 11/15/17 09:58 Lovenox - SQ 120 mg BID [facility] Administration Furosemide 80 mg 11/10/17 14:00 11/15/17 06:04 Lasix Injection - IVPUSH 80 mg BID@0600,1400 [facility] Administration Melatonin 5 mg 11/14/17 23:54 11/15/17 00:05 Melatonin PO 5 mg HS PRN Administration INSOMNIA Methadone HCl 60 mg 11/14/17 22:00 11/14/17 22:43 Dolophine - PO 60 mg HS [facility] Administration Metoprolol Succinate 25 mg 11/13/17 22:00 11/15/17 09:58 Toprol Xl - PO 25 mg BID [facility] Administration Nicotine 21 mg 11/12/17 17:30 11/15/17 09:58 Nicoderm Patch - TD 21 mg DAILY [facility] Administration Prednisone 60 mg 11/14/17 10:00 11/15/17 09:58 Deltasone - PO 60 mg DAILY [facility] Administration Tamsulosin HCl 0.4 mg 11/10/17 08:30 11/15/17 09:58 Flomax - PO 0.4 mg DAILY@0830 [facility] Administration Warfarin Sodium 7.5 mg 11/15/17 18:00 Coumadin - PO DAILY@1800 [facility] OBJECTIVE: Vital Signs Period Temp Pulse Resp BP Sys/Vyas Pulse Ox Last 24 Hr 97.5 F-98.4 F 88-102 18-20 104-134/61-73 93-96 Neuro: alert, awake, cn 2-12intact Pulm: Diminished breath sounds bilaterally CV: s1 s2 irregular rate rhythm Abd: s nt nd + bs Ext: b/l lower ex venous stasis changes, R upper thigh drying left +1 edema CBCD WBC 6.6 K/mm3 (4.0-10.0) 11/13/17 09:25 RBC 5.20 M/mm3 (4.00-5.60) 11/13/17 09:25 Hgb 14.9 GM/dL (11.7-16.9) 11/13/17 09:25 Hct 45.5 % (35.4-49) 11/13/17 09:25 MCV 87.4 fl (80-96) 11/13/17 09:25 MCHC 32.7 g/dl (32.0-35.9) 11/13/17 09:25 RDW 14.1 % (11.9-15.9) 11/13/17 09:25 Plt Count 171 K/MM3 (134-434) 11/13/17 09:25 MPV 9.1 fl (7.5-11.1) 11/13/17 09:25 CMP Sodium 135 mmol/L (136-145) L 11/15/17 06:30 Potassium 3.3 mmol/L (3.5-5.1) L D 11/15/17 06:30 Chloride 90 mmol/L (98-107) L 11/15/17 06:30 Carbon Dioxide 37 mmol/L (21-32) H D 11/15/17 06:30 Anion Gap 8 (8-16) 11/15/17 06:30 BUN 36 mg/dL (7-18) H 11/15/17 06:30 Creatinine 1.0 mg/dL (0.7-1.3) 11/15/17 06:30 Creat Clearance w eGFR > 60 (>60) 11/13/17 09:25 Random Glucose 82 mg/dL (74-106) 11/15/17 06:30 Calcium 8.7 mg/dL (8.5-10.1) 11/15/17 06:30 Total Bilirubin 1.1 mg/dL (0.2-1.0) H D 11/13/17 09:25 AST 25 U/L (15-37) 11/13/17 09:25 ALT 18 U/L (12-78) 11/13/17 09:25 Alkaline Phosphatase 102 U/L (45-117) 11/13/17 09:25 Total Protein 8.3 g/dl (6.4-8.2) H 11/13/17 09:25 Albumin 3.8 g/dl (3.4-5.0) 11/13/17 09:25 CARDIAC ENZYMES Creatine Kinase 76 IU/L (39-308) 11/09/17 22:20 Troponin I < 0.03 ng/ml (0.00-0.06) 11/09/17 22:20 Microbiology 11/09/17 22:20 Blood - Peripheral Venous Blood Culture - Final NO GROWTH AFTER 5 DAYS INCUBATION 11/09/17 22:20 Blood - Peripheral Venous Blood Culture - Final NO GROWTH AFTER 5 DAYS INCUBATION Assessment: 67 year old male admitted with worsening shortness of breath and le edema Plan: 1. Acute on chronic hypoxic/ hypercapnic respiratory failure - Tolerating NC saturating low 90's - Continue Bipap - Steroids changed to Prednisone - Qualifies for home o2 2. A fib - Rate better controlled - Increased toprol xl to 25mg po bid - INR sub therapeutic, continue Coumadin 7.5mg po hs - Bridge with Lovenox 120mg BID - Appreciate cardiology consult 3. Acute on chronic diastolic CHF - ECHO reviewed - Continue Lasix 80mg BID IVP - Daily weights, strict I&O 4. Substance abuse - Increased Methadone to 60mg po hs Dispo: - Can discharge once INR therapeutic - When discharge fax DC summary Dr. Karmen Toribio at [facility] (fax) [phone] (office #) Visit type - Emergency Visit Emergency Visit: Yes ED Registration Date: 11/10/17 Care time: The patient presented to the Emergency Department on the above date and was hospitalized for further evaluation of their emergent condition. - New Patient This patient is new to me today: No - Critical Care Critical Care patient: No
[2017-11-15] MEDS ORDERED: POTASSIUM CHLORIDE TABS 20 MEQ TABLET.ER (FP) PO ONE (13:15)
--- NOTE | 2017-11-15 14:35 | PN ---
Progress Note, Physician Chief Complaint: less sob lying flat tele af controlled vr History of Present Illness: This is a 67 year old male with chronic atrial fibrillation on coumadin followed at the [facility], drug abuse on methadone, smoker, chronic diastolic CHF , left cataract surgery, L hip surgery, presented to the ED with 3 days worsening shortness of breath. CXR negative but worsening edema. No chest pain , orthopnea or PND. Echo 11/13/17 EF 65%, mild MR/TR - Current Medication List Current Medications: Active Medications Enoxaparin Sodium (Lovenox -) 120 mg SQ BID [facility] Last Admin: 11/15/17 09:58 Dose: 120 mg Furosemide (Lasix Injection -) 80 mg IVPUSH BID@0600,1400 [facility] Last Admin: 11/15/17 13:42 Dose: 80 mg Melatonin (Melatonin) 5 mg PO HS PRN PRN Reason: INSOMNIA Last Admin: 11/15/17 00:05 Dose: 5 mg Methadone HCl (Dolophine -) 60 mg PO HS [facility] Last Admin: 11/14/17 22:43 Dose: 60 mg Metoprolol Succinate (Toprol Xl -) 25 mg PO BID [facility] Last Admin: 11/15/17 09:58 Dose: 25 mg Nicotine (Nicoderm Patch -) 21 mg TD DAILY [facility] Last Admin: 11/15/17 09:58 Dose: 21 mg Prednisone (Deltasone -) 60 mg PO DAILY [facility] Last Admin: 11/15/17 09:58 Dose: 60 mg Tamsulosin HCl (Flomax -) 0.4 mg PO DAILY@0830 [facility] Last Admin: 11/15/17 09:58 Dose: 0.4 mg Warfarin Sodium (Coumadin -) 7.5 mg PO DAILY@1800 [facility] - Objective Vital Signs: Vital Signs Temperature 98.2 F 11/15/17 09:00 Pulse Rate 98 H 11/15/17 09:00 Respiratory Rate 18 11/15/17 09:00 Blood Pressure 106/64 11/15/17 09:00 O2 Sat by Pulse Oximetry (%) 96 11/15/17 09:00 Constitutional: Yes: No Distress, Calm Eyes: Yes: Conjunctiva Clear, EOM Intact HENT: Yes: Normocephalic Neck: Yes: Trachea Midline Cardiovascular: Yes: Regular Rate and Rhythm Respiratory: Yes: CTA Bilaterally Gastrointestinal: Yes: Normal Bowel Sounds, Soft Musculoskeletal: Yes: WNL Extremities: Yes: WNL Edema: Yes Edema: LLE: 1+, RLE: 1+ Peripheral Pulses WNL: Yes Labs: CBC, BMP 11/13/17 09:25 11/15/17 06:30 INR, PTT INR 1.84 (0.82-1.09) H 11/15/17 06:30 Problem List - Problems (1) Atrial fibrillation Assessment/Plan: Continue coumadin. Rates are controlled. continue metoprolol, telemetry can be dcd. Code(s): I48.91 - UNSPECIFIED ATRIAL FIBRILLATION Qualifiers: Atrial fibrillation type: chronic Qualified Code(s): I48.2 - Chronic atrial fibrillation (2) CHF (congestive heart failure) Assessment/Plan: Elevated BNP, would diurese with lasix, fluid restrict, follow daily weights. Change lasix to 80 mg PO BID please call us with questions. Code(s): I50.9 - HEART FAILURE, UNSPECIFIED Qualifiers: Heart failure type: diastolic Heart failure chronicity: acute on chronic Qualified Code(s): I50.33 - Acute on chronic diastolic (congestive) heart failure
[2017-11-15] MEDS: WARFARIN NA 7.5 MG TABLET (FP) PO SCH (17:23)
[2017-11-15] MEDS ORDERED: PT OWN MED DRAWER 7, Y5N ONE ×2 (21:06→22:21)
[2017-11-15] MEDS: METHADONE HCL 10 MG TABLET PO SCH (21:27)
[2017-11-16] MEDS: FUROSEMIDE 40 MG TABLET (FP) PO SCH ×2 (06:48→13:41)
[2017-11-16 08:22] LABS: ALBUMIN 3.5 g/dl (3.4-5.0); ALK PHOS 91 U/L (45-117); ANION GAP 4 (8-16); BLOOD UREA NITROGEN 37 mg/dL (7-18); CALCIUM 8.9 mg/dL (8.5-10.1); CHLORIDE 90 mmol/L (98-107); CO2 41 mmol/L (21-32); CREATININE 1.1 mg/dL (0.7-1.3); GLUCOSE,RANDOM 87 mg/dL (74-106); POTASSIUM 3.5 mmol/L (3.5-5.1); SGOT/AST 19 U/L (15-37); SGPT/ALT 24 U/L (12-78); SODIUM 135 mmol/L (136-145); TOT PROT 7.7 g/dl (6.4-8.2)
[2017-11-16 08:24] LABS: INR 1.81 (0.82-1.09); PROTHROMBIN TIME (PATIENT) 20.4 SEC (9.98-11.88)
[2017-11-16] MEDS: predniSONE 20 MG TABLET (UD) PO SCH (09:41)
[2017-11-16] MEDS: TAMSULOSIN HCL 0.4 MG CAP.ER.24H (FP) PO SCH (09:41)
[2017-11-16] MEDS: NICOTINE 21 MG/24 HOURS TOPICAL PATCH TD SCH (09:41)
[2017-11-16] MEDS: metoPROLOL SUCCINATE 25 MG TAB.SR.24H (FP) PO SCH ×2 (09:41→22:01)
[2017-11-16] MEDS: ENOXAPARIN NA (PORCINE) 120 MG/0.8 ML DISP.SYRIN SQ SCH ×2 (09:42→22:00)
--- NOTE | 2017-11-16 10:48 | PN ---
Physical Exam: SUBJECTIVE: Patient seen and examined at the bedside. Feels well, wants to go home. OBJECTIVE: INR 1.81 on Lovenox bridge to Coumadin Called Dr. Karmen Toribio at [facility] [phone] (office #) to make pt a follow up appt for INR check, no response, no VM. If pt were to be sent home with Lovenox to coumadin bridge, he will need a PCP appt prior to d/c. No recent pre and post in order to assess home oxygen need, will order one now for a sleep screen tonight as per dr. marcus Vital Signs Period Temp Pulse Resp BP Sys/Vyas Pulse Ox Last 24 Hr 97.3 F-98.2 F 78-110 16-18 101-116/55-73 96-96 GENERAL: The patient is awake, alert, and fully oriented, in no acute distress. HEAD: Normal with no signs of trauma. EYES: PERRL, extraocular movements intact, sclera anicteric, conjunctiva clear. No ptosis. ENT: Ears normal, nares patent, oropharynx clear without exudates, moist mucous membranes. NECK: Trachea midline, full range of motion, supple. LUNGS: Breath sounds equal, diminished bilaterally, no wheezing HEART: irregular heart rate 90s on radiation monitor ABDOMEN: Soft, nontender, nondistended, normoactive bowel sounds EXTREMITIES: Non pitting edema. NEUROLOGICAL: Normal speech, gait not observed. PSYCH: Normal mood, normal affect. Laboratory Results - last 24 hr 11/16/17 11/16/17 07:40 07:40 PT with INR 20.40 H INR 1.81 H Sodium 135 L Potassium 3.5 Chloride 90 L Carbon Dioxide 41 H Anion Gap 4 L BUN 37 H Creatinine 1.1 Creat Clearance w eGFR > 60 Random Glucose 87 Calcium 8.9 Total Bilirubin 1.0 AST 19 D ALT 24 D Alkaline Phosphatase 91 Total Protein 7.7 Albumin 3.5 Active Medications Generic Name Dose Route Start Last Admin Trade Name Freq PRN Reason Stop Dose Admin Enoxaparin Sodium 120 mg 11/11/17 11:15 11/16/17 09:42 Lovenox - SQ 120 mg BID [facility] Administration Furosemide 80 mg 11/16/17 06:00 11/16/17 06:48 Lasix - PO 80 mg BID@0600,1400 [facility] Administration Melatonin 5 mg 04/05/18 23:54 11/15/17 23:01 Melatonin PO 5 mg HS PRN Administration INSOMNIA Methadone HCl 60 mg 11/14/17 22:00 11/15/17 21:27 Dolophine - PO 60 mg HS [facility] Administration Metoprolol Succinate 25 mg 11/13/17 22:00 11/16/17 09:41 Toprol Xl - PO 25 mg BID [facility] Administration Nicotine 21 mg 11/12/17 17:30 11/16/17 09:41 Nicoderm Patch - TD 21 mg DAILY [facility] Administration Prednisone 60 mg 11/14/17 10:00 11/16/17 09:41 Deltasone - PO 60 mg DAILY [facility] Administration Tamsulosin HCl 0.4 mg 11/10/17 08:30 11/16/17 09:41 Flomax - PO 0.4 mg DAILY@0830 [facility] Administration Warfarin Sodium 7.5 mg 11/15/17 18:00 11/15/17 17:23 Coumadin - PO 7.5 mg DAILY@1800 [facility] Administration ASSESSMENT/PLAN: Patient is a 66 year old male with a significant past medical history of CHF, left cataract surgery, daily smoker (1 pack daily x 40 yrs) and polysubstance abuse. He presented to the ED on 11/10/2017 for shortness of breath x 2 weeks with increased bilateral lower extremity edema. Patient reports that prior to admission, he noted that he became short of breath with minimal physical activity. He was seen at the urgent care prior to his ED visit and was encouraged to report to the ER for worsening shortness of breath. Patient endorses improvement of orthopnea which he originally experienced prior to admission. He is not home oxygen dependent. Imaging: Chest xray: no acute process seen Echo:EF 65-70%, mild mitral regurg, mildly dilated, mild tricuspid regurg, inf vena cava mod dilated, mild aortic sclerosis Pulmonary: COPD Exacerbation, acute on chronic Chronic Hypoxic and Hypercapneic respiratory failure Bipap, but now tolerating nasal cannula For sleep screen tonight On Prednisone 60mg daily, taper as per pulmonary recommendations Pre and post prior to d/c, ordered for a.m. Pulmonary following Cardiology: Atrial Fibrillation, chronic Toprol 25mg bid (recently increased) On Toprol 25mg daily On Coumadin at home, INR subtherapeutic on admission On Lovenox bridging to Coumadin Reported to be on a Coumadin regimen (Coumadin with alternating doses) Since subtherapeutic, On Coumadin 7.5mg, with repeat INR in a.m. INR goal bet. 2-3 CHF Acute on chronic diastolic CHF On Lasix 80mg PO ID, with addition of supplemental K Dry weight reported to be apx 122kg, currently 123kg Monitor intake and output, weight daily Psyche: Polysubstance abuse, chronic On Methadone 60mg Smoker, active On Nicotine patch Encourage smoking cessation F.E.N. Fluids: PO adequate Electrolytes: monitor daily Nutrition: low salt Prophy: DVT: Lovenox 120mg BID with coumadin bridging GI: deferred Disposition: Discharge summary to be faxed to patient's primary care physician: Chloé Toribio at [facility] [phone] (fax) [phone] (office) as per previous provider note. Visit type - Emergency Visit Emergency Visit: Yes ED Registration Date: 11/10/17 Care time: The patient presented to the Emergency Department on the above date and was hospitalized for further evaluation of their emergent condition. - New Patient This patient is new to me today: No - Critical Care Critical Care patient: No - Discharge Referral Referred to [facility] Med P.C.: No
--- NOTE | 2017-11-16 10:51 | PN ---
Progress Note, Physician History of Present Illness: pulmonary alert,no distress,-sob,-cp - Current Medication List Current Medications: Active Medications Enoxaparin Sodium (Lovenox -) 120 mg SQ BID [facility] Last Admin: 11/16/17 09:42 Dose: 120 mg Furosemide (Lasix -) 80 mg PO BID@0600,1400 [facility] Last Admin: 11/16/17 06:48 Dose: 80 mg Melatonin (Melatonin) 5 mg PO HS PRN PRN Reason: INSOMNIA Last Admin: 11/15/17 23:01 Dose: 5 mg Methadone HCl (Dolophine -) 60 mg PO HS [facility] Last Admin: 11/15/17 21:27 Dose: 60 mg Metoprolol Succinate (Toprol Xl -) 25 mg PO BID [facility] Last Admin: 11/16/17 09:41 Dose: 25 mg Nicotine (Nicoderm Patch -) 21 mg TD DAILY [facility] Last Admin: 11/16/17 09:41 Dose: 21 mg Prednisone (Deltasone -) 60 mg PO DAILY [facility] Last Admin: 11/16/17 09:41 Dose: 60 mg Tamsulosin HCl (Flomax -) 0.4 mg PO DAILY@0830 [facility] Last Admin: 11/16/17 09:41 Dose: 0.4 mg Warfarin Sodium (Coumadin -) 7.5 mg PO DAILY@1800 [facility] Last Admin: 11/15/17 17:23 Dose: 7.5 mg - Objective Vital Signs: Vital Signs Temperature 98.2 F 11/16/17 05:35 Pulse Rate 78 11/16/17 08:51 Respiratory Rate 18 11/16/17 08:51 Blood Pressure 116/58 11/16/17 08:51 O2 Sat by Pulse Oximetry (%) 96 11/16/17 08:37 Constitutional: Yes: Well Nourished, Calm Eyes: Yes: WNL HENT: Yes: WNL Neck: Yes: WNL Cardiovascular: Yes: Pulse Irregular, S1, S2 Respiratory: Yes: CTA Bilaterally Gastrointestinal: Yes: Normal Bowel Sounds, Soft Extremities: Yes: WNL Edema: Yes Labs: 11/16/17 07:40 INR, PTT INR 1.81 (0.82-1.09) H 11/16/17 07:40 Assessment/Plan A/P Acute on Likely Chronic Hypoxic and Hypercapneic Respiratory Failure Acute COPD Exacerbation Atrial Fibrillation CHF Methadone Maintenance Smoker - prednisone - inhaled bronchodilators standing and PRN - O2 to keep Spo2 88-92% to prevent worsening V/Q mismatch - lasix - monitor urine output, creatinine - rate control - continue anticoagulation - will need outpt PFTs, PSG - when ready for discharge, will need to check ambulatory SpO2 to assess for home O2 - sleep screen tonight Problem List - Problems (1) COPD exacerbation Code(s): J44.1 - CHRONIC OBSTRUCTIVE PULMONARY DISEASE W (ACUTE) EXACERBATION (2) Acute on chronic respiratory failure with hypoxia and hypercapnia Code(s): J96.21 - ACUTE AND CHRONIC RESPIRATORY FAILURE WITH HYPOXIA; J96.22 - ACUTE AND CHRONIC RESPIRATORY FAILURE WITH HYPERCAPNIA (3) CHF (congestive heart failure) Code(s): I50.9 - HEART FAILURE, UNSPECIFIED (4) Methadone dependence Code(s): F11.20 - OPIOID DEPENDENCE, UNCOMPLICATED (5) Atrial fibrillation Code(s): I48.91 - UNSPECIFIED ATRIAL FIBRILLATION
[2017-11-16] MEDS: POTASSIUM CHLORIDE TABS 20 MEQ TABLET.ER (FP) PO SCH (11:49)
[2017-11-16] MEDS: WARFARIN NA 7.5 MG TABLET (FP) PO SCH (17:01)
[2017-11-16] MEDS ORDERED: PT OWN MED DRAWER 7, Y5N ONE (21:19)
[2017-11-16] MEDS: METHADONE HCL 10 MG TABLET PO SCH (22:00)
[2017-11-17] MEDS ORDERED: PT OWN MED DRAWER 7, Y5N ONE ×3 (00:16→22:19)
[2017-11-17] MEDS: MELATONIN 5 MG TABLETS PO PRN ×2 (00:23→23:51)
[2017-11-17] MEDS ORDERED: ACETAMINOPHEN 325 MG TABLET (FP) PO ONE (05:36)
[2017-11-17] MEDS: FUROSEMIDE 40 MG TABLET (FP) PO SCH ×2 (05:45→14:56)
[2017-11-17] MEDS ORDERED: ACETAMINOPHEN 1000 MG/100 ML VIAL (NON FORMULARY) IVPB ONE (06:46)
[2017-11-17 08:32] LABS: CHLORIDE 91 mmol/L (98-107)
[2017-11-17] MEDS: TAMSULOSIN HCL 0.4 MG CAP.ER.24H (FP) PO SCH (08:34)
[2017-11-17 08:39] LABS: ALBUMIN 3.7 g/dl (3.4-5.0); ALK PHOS 89 U/L (45-117); BILIRUBIN,TOTAL 0.9 mg/dL (0.2-1.0); BLOOD UREA NITROGEN 38 mg/dL (7-18); CALCIUM 8.9 mg/dL (8.5-10.1); CO2 33 mmol/L (21-32); CREATININE 1.2 mg/dL (0.7-1.3); GLUCOSE,RANDOM 82 mg/dL (74-106); SGPT/ALT 26 U/L (12-78); TOT PROT 7.9 g/dl (6.4-8.2)
[2017-11-17 08:59] LABS: ANION GAP 8 (8-16); SODIUM 132 mmol/L (136-145)
[2017-11-17 09:00] LABS: MAGNESIUM 2.5 mg/dL (1.8-2.4); POTASSIUM 4.4 mmol/L (3.5-5.1); SGOT/AST 29 U/L (15-37)
[2017-11-17 09:08] LABS: BASO % 0.1 % (0-2.0); EOS % 0.6 % (0-4.5); HEMATOCRIT 46.5 % (35.4-49); HEMOGLOBIN 15.3 GM/dL (11.7-16.9); LYMPH % 36.4 % (8-40); MCH 28.4 pg (25.7-33.7); MCHC 32.9 g/dl (32.0-35.9); MEAN CELL VOLUME 86.5 fl (80-96); MEAN PLT VOLUME 9.6 fl (7.5-11.1); MONO % 11.9 % (3.8-10.2); PLATELET COUNT 182 K/MM3 (134-434); RBC 5.38 M/mm3 (4.00-5.60); RDW 13.5 % (11.9-15.9); WHITE BLOOD COUNT 7.7 K/mm3 (4.0-10.0)
[2017-11-17 10:22] LABS: INR 1.88 (0.82-1.09); PROTHROMBIN TIME (PATIENT) 21.3 SEC (9.98-11.88)
[2017-11-17] MEDS: predniSONE 20 MG TABLET (UD) PO SCH (10:34)
[2017-11-17] MEDS: ENOXAPARIN NA (PORCINE) 120 MG/0.8 ML DISP.SYRIN SQ SCH ×2 (10:34→22:24)
[2017-11-17] MEDS: NICOTINE 21 MG/24 HOURS TOPICAL PATCH TD SCH (10:35)
[2017-11-17] MEDS: POTASSIUM CHLORIDE TABS 20 MEQ TABLET.ER (FP) PO SCH (10:35)
[2017-11-17] MEDS: metoPROLOL SUCCINATE 25 MG TAB.SR.24H (FP) PO SCH ×2 (10:35→22:24)
[2017-11-17] MEDS ORDERED: WARFARIN NA 10 MG TABLET (FP) PO SCH (10:58)
--- NOTE | 2017-11-17 11:40 | PN ---
Progress Note, Physician History of Present Illness: PULMONARY ALERT,,NAD,-CP,DYSPNEA IMPROVED. SLEEP SCREEN AHI26.3 C/W SEVERE OSAS - Current Medication List Current Medications: Active Medications Enoxaparin Sodium (Lovenox -) 120 mg SQ BID [facility] Last Admin: 11/17/17 10:34 Dose: 120 mg Furosemide (Lasix -) 80 mg PO BID@0600,1400 [facility] Last Admin: 11/17/17 05:45 Dose: 80 mg Melatonin (Melatonin) 5 mg PO HS PRN PRN Reason: INSOMNIA Last Admin: 11/17/17 00:23 Dose: 5 mg Methadone HCl (Dolophine -) 60 mg PO HS [facility] Last Admin: 11/16/17 22:00 Dose: 60 mg Metoprolol Succinate (Toprol Xl -) 25 mg PO BID [facility] Last Admin: 11/17/17 10:35 Dose: 25 mg Nicotine (Nicoderm Patch -) 21 mg TD DAILY [facility] Last Admin: 11/17/17 10:35 Dose: 21 mg Potassium Chloride (K-Dur -) 40 meq PO DAILY [facility] Last Admin: 11/17/17 10:35 Dose: 40 meq Prednisone (Deltasone -) 60 mg PO DAILY [facility] Last Admin: 11/17/17 10:34 Dose: 60 mg Tamsulosin HCl (Flomax -) 0.4 mg PO DAILY@0830 [facility] Last Admin: 11/17/17 08:34 Dose: 0.4 mg Warfarin Sodium (Coumadin -) 10 mg PO DAILY@1800 [facility] - Objective Vital Signs: Vital Signs Temperature 97.3 F L 11/17/17 05:45 Pulse Rate 88 11/17/17 05:45 Respiratory Rate 20 11/17/17 05:45 Blood Pressure 126/82 11/17/17 05:45 O2 Sat by Pulse Oximetry (%) 97 11/16/17 21:00 Constitutional: Yes: Well Nourished, Calm Eyes: Yes: WNL HENT: Yes: WNL Neck: Yes: WNL Cardiovascular: Yes: Pulse Irregular, S1, S2 Respiratory: Yes: Diminished Gastrointestinal: Yes: Normal Bowel Sounds, Soft Extremities: Yes: WNL Edema: Yes Edema: LLE: Trace, RLE: Trace Labs: CBC, BMP 11/17/17 08:05 11/17/17 07:00 INR, PTT INR 1.88 (0.82-1.09) H 11/17/17 09:40 Assessment/Plan A/P Acute on Likely Chronic Hypoxic and Hypercapneic Respiratory Failure Acute COPD Exacerbation Atrial Fibrillation CHF Methadone Maintenance Smoker OSAS AHI 26.3 on Sleep screen - prednisone - inhaled bronchodilators standing and PRN - O2 to keep Spo2 88-92% to prevent worsening V/Q mismatch - lasix a - monitor urine output, creatinine - rate control - continue anticoagulation - will need outpt PFTs, PSG - when ready for discharge, will need to check ambulatory SpO2 to assess for home O2 Problem List - Problems (1) COPD exacerbation Code(s): J44.1 - CHRONIC OBSTRUCTIVE PULMONARY DISEASE W (ACUTE) EXACERBATION (2) Acute on chronic respiratory failure with hypoxia and hypercapnia Code(s): J96.21 - ACUTE AND CHRONIC RESPIRATORY FAILURE WITH HYPOXIA; J96.22 - ACUTE AND CHRONIC RESPIRATORY FAILURE WITH HYPERCAPNIA (3) CHF (congestive heart failure) Code(s): I50.9 - HEART FAILURE, UNSPECIFIED (4) Methadone dependence Code(s): F11.20 - OPIOID DEPENDENCE, UNCOMPLICATED (5) Atrial fibrillation Code(s): I48.91 - UNSPECIFIED ATRIAL FIBRILLATION
[2017-11-17] MEDS: LIDOCAINE 5% TOPICAL PATCH TP SCH (14:57)
--- NOTE | 2017-11-17 15:39 | PN ---
Physical Exam: SUBJECTIVE: Patient seen and examined OBJECTIVE: INR 1.88 on Lovenox bridge to Coumadin Called Dr. Karmen Toribio at [facility] [phone] (office #) to make pt a follow up appt for INR check, no response, no VM. If pt were to be sent home with Lovenox to coumadin bridge, he will need a PCP appt prior to d/c for INR check/follow up. No recent pre and post in order to assess home oxygen need, will order Vital Signs Period Temp Pulse Resp BP Sys/Vyas Pulse Ox Last 24 Hr 97.3 F-98.3 F 79-101 18-20 99-126/56-82 97-97 GENERAL: The patient is awake, alert, and fully oriented, in no acute distress. HEAD: Normal with no signs of trauma. EYES: PERRL, extraocular movements intact, sclera anicteric, conjunctiva clear. No ptosis. ENT: Ears normal, nares patent, oropharynx clear without exudates, moist mucous membranes. NECK: Trachea midline, full range of motion, supple. LUNGS: Breath sounds equal, clear to auscultation bilaterally, no wheezes, no crackles, no accessory muscle use. HEART: Regular rate and rhythm, S1, S2 without murmur, rub or gallop. ABDOMEN: Soft, nontender, nondistended, normoactive bowel sounds, no guarding, no rebound, no hepatosplenomegaly, no masses. EXTREMITIES: 2+ pulses, warm, well-perfused, no edema. NEUROLOGICAL: Cranial nerves II through XII grossly intact. Normal speech, gait not observed. PSYCH: Normal mood, normal affect. SKIN: Warm, dry, normal turgor, no rashes or lesions noted Laboratory Results - last 24 hr 11/17/17 11/17/17 11/17/17 07:00 08:05 09:40 WBC 7.7 RBC 5.38 Hgb 15.3 Hct 46.5 MCV 86.5 MCH 28.4 MCHC 32.9 RDW 13.5 Plt Count 182 MPV 9.6 Neutrophils % 51.0 D Lymphocytes % 36.4 D Monocytes % 11.9 H Eosinophils % 0.6 D Basophils % 0.1 PT with INR 21.30 H INR 1.88 H Sodium 132 L Potassium 4.4 D Chloride 91 L Carbon Dioxide 33 H Anion Gap 8 BUN 38 H Creatinine 1.2 Creat Clearance w eGFR > 60 Random Glucose 82 Calcium 8.9 Magnesium 2.5 H D Total Bilirubin 0.9 AST 29 D ALT 26 Alkaline Phosphatase 89 Total Protein 7.9 Albumin 3.7 Active Medications Generic Name Dose Route Start Last Admin Trade Name Freq PRN Reason Stop Dose Admin Enoxaparin Sodium 120 mg 11/11/17 11:15 11/17/17 10:34 Lovenox - SQ 120 mg BID [facility] Administration Furosemide 80 mg 11/16/17 06:00 11/17/17 05:45 Lasix - PO 80 mg BID@0600,1400 [facility] Administration Lidocaine 1 patch 11/17/17 14:45 Lidoderm Patch - TP DAILY [facility] Melatonin 5 mg 11/14/17 23:54 11/17/17 00:23 Melatonin PO 5 mg HS PRN Administration INSOMNIA Methadone HCl 60 mg 11/14/17 22:00 11/16/17 22:00 Dolophine - PO 60 mg HS [facility] Administration Metoprolol Succinate 25 mg 11/13/17 22:00 11/17/17 10:35 Toprol Xl - PO 25 mg BID [facility] Administration Miscellaneous 1 each 11/17/17 22:00 Lidoderm Patch Removal MC DAILY@2200 [facility] Nicotine 21 mg 11/12/17 17:30 11/17/17 10:35 Nicoderm Patch - TD 21 mg DAILY [facility] Administration Potassium Chloride 40 meq 11/16/17 11:30 11/17/17 10:35 K-Dur - PO 40 meq DAILY [facility] Administration Prednisone 60 mg 11/14/17 10:00 11/17/17 10:34 Deltasone - PO 60 mg DAILY [facility] Administration Tamsulosin HCl 0.4 mg 11/10/17 08:30 11/17/17 08:34 Flomax - PO 0.4 mg DAILY@0830 [facility] Administration Warfarin Sodium 10 mg 11/17/17 10:58 Coumadin - PO DAILY@1800 [facility] ASSESSMENT/PLAN: Patient is a 66 year old male with a significant past medical history of CHF, left cataract surgery, daily smoker (1 pack daily x 40 yrs) and polysubstance abuse. He presented to the ED on 11/10/2017 for shortness of breath x 2 weeks with increased bilateral lower extremity edema. Patient reports that prior to admission, he noted that he became short of breath with minimal physical activity. He was seen at the urgent care prior to his ED visit and was encouraged to report to the ER for worsening shortness of breath. Patient endorses improvement of orthopnea which he originally experienced prior to admission. He is not home oxygen dependent. Imaging: Chest xray: no acute process seen Echo:EF 65-70%, mild mitral regurg, mildly dilated, mild tricuspid regurg, inf vena cava mod dilated, mild aortic sclerosis Pulmonary: COPD Exacerbation, acute on chronic Chronic Hypoxic and Hypercapneic respiratory failure Bipap, but now tolerating nasal cannula For sleep screen tonight On Prednisone 60mg daily, taper as per pulmonary recommendations Pre and post prior to d/c, ordered for a.m. Pulmonary following Cardiology: Atrial Fibrillation, chronic Toprol 25mg bid (recently increased) On Coumadin at home, INR subtherapeutic on admission On Lovenox bridging to Coumadin Reported to be on a Coumadin regimen (Coumadin with alternating doses) Since subtherapeutic increase to Coumadin 10mg and repeat INR in a.m. INR goal bet. 2-3 CHF Acute on chronic diastolic CHF On Lasix 80mg PO ID, with addition of supplemental K Dry weights Monitor intake and output, weight daily Psyche: Polysubstance abuse, chronic On Methadone 60mg Smoker, active On Nicotine patch Encourage smoking cessation F.E.N. Fluids: PO adequate Electrolytes: monitor daily Nutrition: low salt Prophy: DVT: Lovenox 120mg BID with coumadin bridging GI: deferred Disposition: Discharge summary to be faxed to patient's primary care physician: Chloé Toribio at [facility] [phone] (fax) [phone] (office) as per previous provider note.
[2017-11-17] MEDS ORDERED: LIDOCAINE PATCH REMOVAL MC SCH (22:00)
[2017-11-17] MEDS: METHADONE HCL 10 MG TABLET PO SCH (22:23)
[2017-11-18 01:31] VITALS: TEMP 97.2
[2017-11-18] MEDS: FUROSEMIDE 40 MG TABLET (FP) PO SCH (06:23)
[2017-11-18 06:24] VITALS: BP 90/57; PULSE 95
[2017-11-18] MEDS: TAMSULOSIN HCL 0.4 MG CAP.ER.24H (FP) PO SCH (08:25)
[2017-11-18 08:34] LABS: INR 2.19 (0.82-1.09); PROTHROMBIN TIME (PATIENT) 24.7 SEC (9.98-11.88)
[2017-11-18 08:38] LABS: ALBUMIN 3.4 g/dl (3.4-5.0); ALK PHOS 84 U/L (45-117); ANION GAP 3 (8-16); BILIRUBIN,TOTAL 0.5 mg/dL (0.2-1.0); BLOOD UREA NITROGEN 32 mg/dL (7-18); CALCIUM 8.8 mg/dL (8.5-10.1); CHLORIDE 95 mmol/L (98-107); CO2 37 mmol/L (21-32); CREATININE 0.9 mg/dL (0.7-1.3); GLUCOSE,RANDOM 92 mg/dL (74-106); POTASSIUM 3.9 mmol/L (3.5-5.1); SGOT/AST 23 U/L (15-37); SGPT/ALT 30 U/L (12-78); SODIUM 135 mmol/L (136-145); TOT PROT 7.3 g/dl (6.4-8.2)
[2017-11-18 08:39] LABS: BASO % 0.2 % (0-2.0); EOS % 1.1 % (0-4.5); HEMATOCRIT 43.9 % (35.4-49); HEMOGLOBIN 14.3 GM/dL (11.7-16.9); LYMPH % 31.6 % (8-40); MCH 28.2 pg (25.7-33.7); MCHC 32.6 g/dl (32.0-35.9); MEAN CELL VOLUME 86.5 fl (80-96); MEAN PLT VOLUME 9.6 fl (7.5-11.1); MONO % 10.5 % (3.8-10.2); NEUT % 56.6 % (42.8-82.8); PLATELET COUNT 177 K/MM3 (134-434); RBC 5.08 M/mm3 (4.00-5.60); RDW 13.9 % (11.9-15.9); WHITE BLOOD COUNT 7.6 K/mm3 (4.0-10.0)
[2017-11-18] MEDS ORDERED: PT OWN MED DRAWER 7, Y5N ONE (08:51)
--- NOTE | 2017-11-18 09:21 | DS ---
Physical Exam: SUBJECTIVE: Patient seen and examined at the bedside. Feels well, ready to go home. OBJECTIVE: Respiratory pre and post shows that patient qualified for home oxygen use INR now therapeutic, will send home with Coumadin 7.5mg daily with an INR check scheduled for November 20 at 11a.m. at the [facility] in the [place]. Vital Signs Period Temp Pulse Resp BP Sys/Vyas Pulse Ox Last 24 Hr 97.2 F-98.3 F 79-97 18-20 90-128/55-67 91-97 PHYSICAL EXAM GENERAL: The patient is awake, alert, and fully oriented, in no acute distress. HEAD: Normal with no signs of trauma. EYES: PERRL, extraocular movements intact, sclera anicteric, conjunctiva clear. No ptosis. ENT: Ears normal, nares patent, oropharynx clear without exudates, moist mucous membranes. NECK: Trachea midline, full range of motion, supple. LUNGS: Breath sounds equal, diminished bilaterally, no wheezing HEART: irregular heart rate 90s on electronic device monitor ABDOMEN: Soft, nontender, nondistended, normoactive bowel sounds EXTREMITIES: Non pitting edema. NEUROLOGICAL: Normal speech, gait not observed. PSYCH: Normal mood, normal affect. LABS Laboratory Results - last 24 hr 11/17/17 11/17/17 11/18/17 08:05 09:40 07:55 WBC 7.7 7.6 RBC 5.38 5.08 Hgb 15.3 14.3 Hct 46.5 43.9 MCV 86.5 86.5 MCH 28.4 28.2 MCHC 32.9 32.6 RDW 13.5 13.9 Plt Count 182 177 MPV 9.6 9.6 Neutrophils % 51.0 D 56.6 Lymphocytes % 36.4 D 31.6 Monocytes % 11.9 H 10.5 H Eosinophils % 0.6 D 1.1 D Basophils % 0.1 0.2 PT with INR 21.30 H INR 1.88 H Sodium Potassium Chloride Carbon Dioxide Anion Gap BUN Creatinine Creat Clearance w eGFR Random Glucose Calcium Total Bilirubin AST ALT Alkaline Phosphatase Total Protein Albumin 11/18/17 11/18/17 07:55 07:55 WBC RBC Hgb Hct MCV MCH MCHC RDW Plt Count MPV Neutrophils % Lymphocytes % Monocytes % Eosinophils % Basophils % PT with INR 24.70 H INR 2.19 H Sodium 135 L Potassium 3.9 Chloride 95 L Carbon Dioxide 37 H Anion Gap 3 L BUN 32 H Creatinine 0.9 D Creat Clearance w eGFR > 60 Random Glucose 92 Calcium 8.8 Total Bilirubin 0.5 D AST 23 D ALT 30 Alkaline Phosphatase 84 Total Protein 7.3 Albumin 3.4 HOSPITAL COURSE: Date of Admission:11/10/17 Date of Discharge: 11/18/17 Patient is a 66 year old male with a significant past medical history of CHF, COPD, left cataract surgery, daily smoker (1 pack daily x 40 yrs) and polysubstance abuse. He presented to the ED on 11/10/2017 for shortness of breath x 2 weeks with increased bilateral lower extremity edema. Patient reports that prior to admission, he noted that he became short of breath with minimal physical activity. He was seen at the urgent care prior to his ED visit and was encouraged to report to the ER for worsening shortness of breath. Patient endorses improvement of orthopnea which he originally experienced prior to admission. He is not home oxygen dependent. Imaging: Chest xray: no acute process seen Echo:EF 65-70%, mild mitral regurg, mildly dilated, mild tricuspid regurg, inf vena cava mod dilated, mild aortic sclerosis Pulmonary: COPD Exacerbation, improving Chronic Hypoxic and Hypercapneic respiratory failure, will need home oxygen therapy continuously Continue Prednisone at the current dose and taper off slowly (as noted below) Continue the inhaled bronchodilators as ordered Supplemental oxygen @ 2-4 liters to maintain your oxygen saturations between 88- 92% Lasix 80mg twice per day (monitor your weights and continue low salt diet) You will need to make an appointment with Dr. Pastor (contact information enclosed) for outpatient PFTs and further pulmonary workup Continue to taper off Prednisone as follows Prednisone 50mg daily for 2 days (11/19, 11/20) Prednisone 40mg daily for 2 days (11/21, 11/22) Prednisone 30mg daily for 2 days (11/23, 11/24) Prednisone 20mg daily for 2 days (11/25, 11/26) Prednisone 10mg daily for 2 days (11/27, 11/28) - last doses, stop after 11/28 Cardiology: Atrial Fibrillation, chronic Toprol 25mg bid (recently increased) Coumadin increased to 7.5mg daily for subtherapeutic INR, continue dose based on INR with primary physician INR goal bet. 2-3 Patient has appointment for INR check on Saturday, November 20 @ [facility]a.[facility] Acute on chronic diastolic CHF On Lasix 80mg PO ID, with addition of supplemental K Monitor intake and output, weight every other day If weights increase to more than 4 lbs in one week, may need increase in Lasix dose Cardiology follow up within 1-2 weeks Psyche: Polysubstance abuse, chronic On Methadone 60mg Smoker, active On Nicotine patch during hospitalization Encourage smoking cessation Disposition: Discharge summary to be faxed to patient's primary care physician: Chloé Toribio at [facility] [phone] (fax) [phone] (office) as per previous provider note. Minutes to complete discharge: 60 Discharge Summary Reason For Visit: SOB Current Active Problems Acute on chronic respiratory failure with hypoxia and hypercapnia (Acute) Atrial fibrillation (Acute) CHF (congestive heart failure) (Acute) COPD exacerbation (Acute) Methadone dependence (Acute) Condition: Improved - Instructions Diet, Activity, Other Instructions: Mr. Craig: We have increased your Coumadin dose to Coumadin 7.5mg. Please have your INR check on November 20 at 11:00AM at the [place] office in the [place] @ [address] [facility]. It is also very important that your follow up with your catch basin cleaner. If you do not have one at the [place], we have referred you to the catch basin cleaner group that attended to you while you were hospitalized. Please taper off the steriods as follows: Prednisone 50mg daily for 2 days (11/19, 11/20) Prednisone 40mg daily for 2 days (11/21, 11/22) Prednisone 30mg daily for 2 days (11/23, 11/24) Prednisone 20mg daily for 2 days (11/25, 11/26) Prednisone 10mg daily for 2 days (11/27, 11/28) - last doses, stop after 11/28 Please call me with any questions that you may have. [facility] FAMILY LIFE EDUC[facility] [phone] [facility] @ [facility] Referrals: Artur Wisdom MD [Staff Physician] - 1 Week ON STAFF,NOT [Non Staff, Medical] - Jalen Pastor MD [Staff Physician] - 1 Week Disposition: HOME - Home Medications Comprehensive Discharge Medication List: Ambulatory Orders Methadone [Dolophine -] 60 mg PO DAILY 12/29/16 Tamsulosin HCl [Flomax] 0.4 mg PO HS 12/29/16 Furosemide [Lasix] 100 mg PO BID 11/09/17 Warfarin Sodium [Coumadin] mg PO DAILY 11/09/17 This patient is new to me today: No Emergency Visit: Yes ED Registration Date: 11/10/17 Care time: The patient presented to the Emergency Department on the above date and was hospitalized for further evaluation of their emergent condition. Critical Care patient: No - Discharge Referral Referred to [facility] No
[2017-11-18] MEDS: LIDOCAINE 5% TOPICAL PATCH TP SCH (10:01)
[2017-11-18] MEDS: NICOTINE 21 MG/24 HOURS TOPICAL PATCH TD SCH (10:01)
[2017-11-18] MEDS: POTASSIUM CHLORIDE TABS 20 MEQ TABLET.ER (FP) PO SCH (10:02)
[2017-11-18] MEDS: ENOXAPARIN NA (PORCINE) 120 MG/0.8 ML DISP.SYRIN SQ SCH (10:02)
[2017-11-18] MEDS: predniSONE 20 MG TABLET (UD) PO SCH (10:02)
[2017-11-18] MEDS: metoPROLOL SUCCINATE 25 MG TAB.SR.24H (FP) PO SCH (10:02)
[2017-11-18] MEDS ORDERED: METHADONE HCL 40 MG DISPERSABLE TABLET PO ONE (12:08)
== END 2017-11-18 14:16 | disposition home or self-care (01) | DRG 189 ==
LOC: FER 18:52 → FM/S 11-10 00:38 → OBSVTOIN 11-10 00:48 → FM/S 11-10 08:38 → J4S 11-11 19:15
PROVIDERS: ADMIT Internal Medicine; ATTEND Nurse Practitioner Family
DX: J96.21 Acute and chronic respiratory failure with hypoxia (principal); I50.33 Acute on chronic diastolic (congestive) heart failure; J44.1 Chronic obstructive pulmonary disease with (acute) exacerbation; F11.20 Opioid dependence, uncomplicated; J96.22 Acute and chronic respiratory failure with hypercapnia; I48.91 Unspecified atrial fibrillation; I11.0 Hypertensive heart disease with heart failure; F17.210 Nicotine dependence, cigarettes, uncomplicated
CPT/HCPCS: 36415; 36600; 71045-TC-FY; 80048; 80053; 80307; 81003; 81015; 82550; 82803; 83605; 83735; 83880; 84484; 85025; 85610; 85730; 87040; 93005; 93306-TC; 93970-TC; 94640; 94660; 94761; 99285-25; G0378; J0131

== ENCOUNTER 2021-11-23 08:05 | Inpatient (IN) | payer OTHER ==
[2021-11-23] MEDS ORDERED: ACETAMINOPHEN 1000 MG/100 ML BAG IVPB ONE (08:29)
[2021-11-23 08:31] VITALS: BMI 41.5
[2021-11-23 09:13] LABS: EPITHELIAL CELLS FEW /hpf
[2021-11-23] MEDS ORDERED: methaDONE HCL 10 MG TABLET (FOR DETOX USE ONLY) PO ONE (09:13)
[2021-11-23] MEDS ORDERED: ALBUTEROL SO4 2.5/IPRATROPIUM 0.5 INH SOL 3 ML VIAL.NEB. NEB ONE ×2 (09:13→09:47)
[2021-11-23] MEDS ORDERED: CEFTRIAXONE 1,000 MG in DEXTROSE 5%-WATER - 50 ML IVPB ONE ×2 (09:20→15:18)
[2021-11-23] MEDS ORDERED: methaDONE HCL 10 MG TABLET ONE (09:46)
[2021-11-23 10:03] LABS: HEMATOCRIT 40.5 % (35.4-49); HEMOGLOBIN 13.6 G/dL (11.7-16.9); MCH 28.9 pg (25.7-33.7); MCHC 33.7 g/dl (32.0-35.9); MEAN CELL VOLUME 85.9 fl (80-96); MEAN PLT VOLUME 9.1 fl (7.5-11.1); RBC 4.72 10^6/uL (4.00-5.60); WHITE BLOOD COUNT 10.5 10^3/uL (4.0-10.8)
[2021-11-23 10:11] LABS: ALBUMIN 3.8 g/dl (3.4-5.0); BILIRUBIN,TOTAL 1.7 mg/dl (0.2-1); CALCIUM 9.2 mg/dl (8.5-10); TOT PROT 7.3 g/dl (6.4-8.2)
[2021-11-23 11:21] LABS: N-TERMINAL BNP 890.2 pg/ml (5-125)
[2021-11-23] MEDS ORDERED: cefTRIAXone SODIUM 1 GM VIAL ONE ×2 (14:22→15:29)
[2021-11-23] MEDS ORDERED: ACETAMINOPHEN INJECTION 100 ML IVPB ONE (14:22)
[2021-11-23] MEDS ORDERED: TAMSULOSIN HCL 0.4 MG CAP PO ONE (15:17)
[2021-11-23] MEDS ORDERED: SODIUM CHLORIDE 0.9% 500 ML INFUS.BAG IV ONE (15:20)
[2021-11-23] MEDS ORDERED: TAMSULOSIN HCL 0.4 MG CAP ONE (15:48)
[2021-11-23 16:30] LABS: INR 1.48 (0.83-1.09); PROTHROMBIN TIME (PATIENT) 17.1 SEC (9.7-13.0)
[2021-11-23 17:18] LABS: HEMATOCRIT 40.2 % (35.4-49); HEMOGLOBIN 13.4 G/dL (11.7-16.9); MCH 28.7 pg (25.7-33.7); MCHC 33.3 g/dl (32.0-35.9); MEAN CELL VOLUME 86.2 fl (80-96); MEAN PLT VOLUME 9.2 fl (7.5-11.1); PLATELET COUNT 115.2 10^3/uL (134-434); RBC 4.66 10^6/uL (4.00-5.60); RDW 13.6 % (11.9-15.9); WHITE BLOOD COUNT 8.9 10^3/uL (4.0-10.8)
[2021-11-23 17:29] LABS: ALBUMIN 3.4 g/dl (3.4-5.0); BILIRUBIN,TOTAL 1.4 mg/dl (0.2-1); CALCIUM 8.8 mg/dl (8.5-10)
[2021-11-23 17:42] LABS: PLATELET ESTIMATE SLT DECREASE
[2021-11-23 17:45] LABS: ANISOCYTOSIS FEW
[2021-11-24] MEDS ORDERED: ACETAMINOPHEN 325 MG TABLET (FP) PO PRN (01:45)
[2021-11-24] MEDS ORDERED: SODIUM CHLORIDE 1,000 ML IV SCH ×2 (01:45→08:05)
[2021-11-24] MEDS ORDERED: ONDANSETRON 4 MG/2 ML VIAL IVPUSH PRN (01:50)
[2021-11-24] MEDS ORDERED: methaDONE HCL 40 MG DISPERSABLE TABLET PO ONE (06:00)
[2021-11-24] MEDS ORDERED: TAMSULOSIN HCL 0.4 MG CAP PO SCH (08:30)
[2021-11-24] MEDS ORDERED: cefTRIAXone SODIUM 1 GM VIAL ONE ×2 (09:01→13:04)
[2021-11-24] MEDS ORDERED: DEXTROSE 5%-WATER - 50 ML IVPB ONE ×2 (09:02→13:04)
[2021-11-24 09:11] LABS: HEMATOCRIT 37.9 % (35.4-49); HEMOGLOBIN 12.3 GM/dL (11.7-16.9); MCHC 32.4 g/dl (32.0-35.9); MEAN CELL VOLUME 86.5 fl (80-96); MEAN PLT VOLUME 9.7 fl (7.5-11.1); PLATELET COUNT 116 10^3/uL (134-434); RBC 4.38 M/mm3 (4.00-5.60); RDW 12.8 % (11.9-15.9); WHITE BLOOD COUNT 8.4 K/mm3 (4.0-10.0)
[2021-11-24 09:51] LABS: MAGNESIUM 2.1 mg/dL (1.8-2.4)
[2021-11-24 09:52] LABS: BLOOD UREA NITROGEN 16.7 mg/dL (7-18); CALCIUM 8.7 mg/dL (8.5-10.1)
[2021-11-24 09:54] LABS: CREATININE 0.9 mg/dL (0.55-1.3); PHOSPHOROUS 3.3 mg/dL (2.5-4.9)
[2021-11-24] MEDS ORDERED: CEFTRIAXONE 1 GM in DEXTROSE 5%-WATER - 50 ML IVPB SCH (10:00)
[2021-11-24] MEDS ORDERED: PIPERACILLIN/TAZOB 3.375 GM 3.375 GM in DEXTROSE 5%-WATER - 50 ML IVPB SCH ×2 (10:45→18:00)
[2021-11-24] MEDS: NICOTINE 14 MG/24 HOURS TOPICAL PATCH TD SCH ×2 (11:42→13:37)
[2021-11-24] MEDS ORDERED: FUROSEMIDE 40 MG/4 ML INJECTABLE VIAL IVPUSH ONE (11:50)
[2021-11-24] MEDS: APIXABAN 5 MG TABLET PO SCH ×2 (13:14→22:25)
[2021-11-24] MEDS: CEFTRIAXONE 1 GM in DEXTROSE 5%-WATER - 50 ML IVPB SCH (13:14)
[2021-11-24] MEDS: TAMSULOSIN HCL 0.4 MG CAP PO SCH (22:24)
[2021-11-24] MEDS: metoPROLOL SUCCINATE 25 MG TAB.SR.24H (FP) PO SCH (22:24)
[2021-11-25] MEDS: methaDONE HCL 40 MG DISPERSABLE TABLET PO SCH (06:28)
[2021-11-25] MEDS: CEFTRIAXONE 1 GM in DEXTROSE 5%-WATER - 50 ML IVPB SCH ×2 (07:29→09:24)
[2021-11-25 08:38] LABS: BASO % 0.2 % (0-2.0); EOS % 1.1 % (0-4.5); HEMATOCRIT 40.4 % (35.4-49); HEMOGLOBIN 12.8 GM/dL (11.7-16.9); LYMPH % 31.8 % (8-40); MCH 27.5 pg (25.7-33.7); MCHC 31.7 g/dl (32.0-35.9); MEAN CELL VOLUME 86.7 fl (80-96); MEAN PLT VOLUME 9.4 fl (7.5-11.1); MONO % 12.7 % (3.8-10.2); NEUT % 54.2 % (42.8-82.8); PLATELET COUNT 118 10^3/uL (134-434); RBC 4.66 M/mm3 (4.00-5.60)
[2021-11-25 08:53] LABS: BLOOD UREA NITROGEN 18.2 mg/dL (7-18)
[2021-11-25 08:57] LABS: CREATININE 0.9 mg/dL (0.55-1.3)
[2021-11-25] MEDS ORDERED: DEXTROSE 5%-WATER - 50 ML IVPB ONE (10:44)
[2021-11-25] MEDS ORDERED: cefTRIAXone SODIUM 1 GM VIAL ONE (10:44)
[2021-11-25] MEDS: POTASSIUM CHLORIDE TABS 20 MEQ TABLET.ER (FP) PO SCH (10:47)
[2021-11-25] MEDS: metoPROLOL SUCCINATE 25 MG TAB.SR.24H (FP) PO SCH ×3 (10:47→21:39)
[2021-11-25] MEDS: APIXABAN 5 MG TABLET PO SCH ×2 (10:47→21:21)
[2021-11-25] MEDS: NICOTINE 14 MG/24 HOURS TOPICAL PATCH TD SCH (10:48)
[2021-11-25] MEDS ORDERED: FUROSEMIDE 40 MG TABLET (FP) PO ONE ×2 (12:16→19:00)
[2021-11-25] MEDS ORDERED: POLYETHYLENE GLYCOL (HEALTHYLAX) 3350 17 GM PACKET PO ONE (12:47)
[2021-11-25] MEDS: CEPHALEXIN MONOHYDRATE 500 MG CAPSULE (UD) PO SCH ×3 (14:05→23:20)
[2021-11-25] MEDS: TAMSULOSIN HCL 0.4 MG CAP PO SCH (21:21)
[2021-11-25] MEDS: BUDESONIDE/FORMETEROL FUMARATE 160/4.5 mcg INHALER IH SCH (21:25)
[2021-11-26 06:03] VITALS: PULSE 98; TEMP 98.3
[2021-11-26] MEDS: methaDONE HCL 40 MG DISPERSABLE TABLET PO SCH (06:14)
[2021-11-26] MEDS: FUROSEMIDE 40 MG TABLET (FP) PO SCH ×2 (06:14→13:11)
[2021-11-26] MEDS: CEPHALEXIN MONOHYDRATE 500 MG CAPSULE (UD) PO SCH ×2 (06:14→13:11)
[2021-11-26 08:54] VITALS: BP 103/59
[2021-11-26] MEDS: APIXABAN 5 MG TABLET PO SCH (10:18)
[2021-11-26] MEDS: NICOTINE 14 MG/24 HOURS TOPICAL PATCH TD SCH (10:18)
[2021-11-26] MEDS: BUDESONIDE/FORMETEROL FUMARATE 160/4.5 mcg INHALER IH SCH (10:18)
[2021-11-26] MEDS: metoPROLOL SUCCINATE 25 MG TAB.SR.24H (FP) PO SCH (10:18)
[2021-11-26] MEDS: POTASSIUM CHLORIDE TABS 20 MEQ TABLET.ER (FP) PO SCH (10:18)
== END 2021-11-26 14:21 | disposition home or self-care (01) | DRG 690 ==
LOC: FER 08:05 → J7W 20:30
PROVIDERS: ADMIT Internal Medicine; ATTEND Internal Medicine
DX: N10 Acute pyelonephritis (principal); I50.32 Chronic diastolic (congestive) heart failure; F11.20 Opioid dependence, uncomplicated; J44.9 Chronic obstructive pulmonary disease, unspecified; I48.91 Unspecified atrial fibrillation; I11.0 Hypertensive heart disease with heart failure; Z79.01 Long term (current) use of anticoagulants; F17.210 Nicotine dependence, cigarettes, uncomplicated; N20.0 Calculus of kidney; K42.9 Umbilical hernia without obstruction or gangrene
CPT/HCPCS: 36415; 71045-TC-FY; 74177-TC; 76775-TC; 80048; 80053; 81003; 81015; 82550; 83605; 83690; 83735; 83880; 84100; 84484; 85025; 85027; 85610; 86850; 86900; 86901; 87086; 87186; 93005; 94761; 97116-GP; 99285-25; C9803-CS; Q9967; U0003; U0005